=== PATIENT | female | born 1975 | race African-American/Black ===

== ENCOUNTER 2018-08-22 15:27 | Emergency (ER) | payer SELFPAY ==
[2018-08-22] MEDS ORDERED: KETOROLAC 30 MG/ML INJ ONE (16:15)
--- NOTE | 2018-08-22 17:00 | EDPHYS ---
Physician Documentation [facility] Name: Kerri Jacobson Age: 43 yrs Sex: Female : 1975 Arrival Date: 08/22/2018 Time: 15:28 Bed 16 Private MD: ED Physician Suleiman Doe HPI: 08/22 15:56 This 43 yrs old Black Female presents to ER via Ambulatory with complaints of Knee Pain.jr8 15:56 The patient presents with pain, that is acute. The complaints affect the right knee. jr8 Context: resulted from an unknown cause, the patient can partially bear weight, the patient is able to ambulate, with mild difficulty, Problem is a result from a previous injury: No. Onset: The symptoms/episode began/occurred acutely, yesterday, and became worse today. Modifying factors: The symptoms are alleviated by elevating leg, OTC meds, the symptoms are aggravated by movement, weight bearing. Associated signs and symptoms: Pertinent negatives calf tenderness, numbness, swelling, tingling, warmth. Treatment prior to arrival includes: over the counter medications, Tylenol. Severity of symptoms: At their worst the symptoms were moderate, in the emergency department the symptoms are unchanged. The patient has not experienced similar symptoms in the past. The patient has not recently seen a physician. right knee pain since yesterday, denies injury. Has been taking tylenol arthritis for pain but pain worsened today. 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 tw2 Historical: - Allergies: 15:35 No Known Allergies; hj - Home Meds: 17:42 losartan Oral [Active]; glipizide 5 mg Oral tab 1 tab once daily [Active]; Metformin tw2 Oral [Active]; - PMHx: 15:35 Diabetes - NIDDM; Hypertension; hj - PSHx: 15:35 uterine ablasion; hj - Immunization history:: Adult Immunizations up to date. - Social history:: Smoking status: Patient/guardian denies using tobacco. - Ebola Screening: : Patient denies travel to an Ebola-affected area in the 21 days before illness onset. ROS: 15:56 Constitutional: Negative for fever, chills, and weight loss, Eyes: Negative for injury, jr8 pain, redness, and discharge, ENT: Negative for injury, pain, and discharge, Neck: Negative for injury, pain, and swelling, Cardiovascular: Negative for chest pain, palpitations, and edema, Respiratory: Negative for shortness of breath, cough, wheezing, and pleuritic chest pain, Abdomen/GI: Negative for abdominal pain, nausea, vomiting, diarrhea, and constipation, Back: Negative for injury and pain, Skin: Negative for injury, rash, and discoloration, Neuro: Negative for headache, weakness, numbness, tingling, and seizure. 15:56 MS/extremity: Positive for pain, tenderness, Negative for contusion, deformity, paresthesias, swelling, tingling, warmth. Exam: 15:56 Constitutional: This is a well developed, well nourished patient who is awake, alert, jr8 and in no acute distress. Head/Face: Normocephalic, atraumatic. Eyes: Pupils equal round and reactive to light, extra-ocular motions intact. Lids and lashes normal. Conjunctiva and sclera are non-icteric and not injected. Cornea within normal limits. Periorbital areas with no swelling, redness, or edema. Neck: Trachea midline, no thyromegaly or masses palpated, and no cervical lymphadenopathy. Supple, full range of motion without nuchal rigidity, or vertebral point tenderness. No Meningismus. Cardiovascular: Regular rate and rhythm with a normal S1 and S2. No gallops, murmurs, or rubs. Normal PMI, no JVD. No pulse deficits. Respiratory: Lungs have equal breath sounds bilaterally, clear to auscultation and percussion. No rales, rhonchi or wheezes noted. No increased work of breathing, no retractions or nasal flaring. Abdomen/GI: Soft, non-tender, with normal bowel sounds. No distension or tympany. No guarding or rebound. No evidence of tenderness throughout. Back: No spinal tenderness. No costovertebral tenderness. Full range of motion. Skin: Warm, dry with normal turgor. Normal color with no rashes, no lesions, and no evidence of cellulitis. Neuro: Awake and alert, GCS 15, oriented to person, place, time, and situation. Cranial nerves II-XII grossly intact. Motor strength 5/5 in all extremities. Sensory grossly intact. Cerebellar exam normal. Normal gait. 15:56 Musculoskeletal/extremity: Extremities: grossly normal except: noted in the right knee: pain, tenderness, There is no evidence of deformity, erythema, swelling, ROM: limited active range of motion due to pain, in the right knee, Circulation is intact in all extremities. Pulses: noted to be 2+ in the right dorsalis pedis artery and left dorsalis pedis artery, Sensation intact. Vital Signs: 15:36 BP 124 / 76; Pulse 95; Resp 18; Temp 97.5(TE); Pulse Ox 100% on R/A; Weight 145.15 kg; hj Height 5 ft. 5 in. (165.10 cm); Pain 8/10; 15:36 Body Mass Index 53.25 (145.15 kg, 165.10 cm) hj MDM: 15:41 Patient medically screened. jr8 16:58 Data reviewed: vital signs, nurses notes, radiologic studies, plain films, and as a jr8 result, I will discharge patient. Data interpreted: Pulse oximetry: on room air is 100 %. Interpretation: normal. Counseling: I had a detailed discussion with the patient and/or guardian regarding: the historical points, exam findings, and any diagnostic results supporting the discharge/admit diagnosis, radiology results, the need for outpatient follow up, a orthopedic surgeon, to return to the emergency department if symptoms worsen or persist or if there are any questions or concerns that arise at home. 08/22 15:56 Order name: Knee Right 3 View XRAY; Complete Time: 17:19 jr8 08/22 17:41 Order name: Roverto Wrap; Complete Time: 17:40 tw2 Administered Medications: 16:02 Drug: TORadol - Ketorolac 15 mg Route: IM; Site: right vastus lateralis; aj 17:40 Follow up: Response: No adverse reaction; Pain is decreased tw2 Disposition: 18:03 Co-signature as Attending Physician, Suleiman Doe MD. rn Disposition: 08/22/18 16:59 Discharged to Home. Impression: Osteoarthritis of knee. - Condition is Stable. - Discharge Instructions: Arthritis. - Prescriptions for Mobic 15 mg Oral tablet - take 1 tablet by ORAL route once daily As needed; 20 tablet. - Work release form, Medication Reconciliation Form, Thank You Letter, Antibiotic Education, Prescription Opioid Use form. - Follow up: Bruce Onofre MD; When: 7 - 10 days; Reason: If symptoms return, Recheck today's complaints, Continuance of care, Re-evaluation by your physician. - Problem is new. - Symptoms have improved. Signatures: Dispatcher [employer] EDJoanna Arboleda, RN RN Suleiman Wallace MD MD rn Roszak, Josh, PA PA jr8 Ovi Millan RN RN Chelsey Chavez RN RN tw2 Corrections: (The following items were deleted from the chart) 17:43 16:59 08/22/2018 16:59 Discharged to Home. Impression: Osteoarthritis of knee. tw2 Condition is Stable. Forms are Medication Reconciliation Form, Thank You Letter, Antibiotic Education, Prescription Opioid Use. Follow up: Dr. Bruce Onofre; When: 7 - 10 days; Reason: If symptoms return, Recheck today's complaints, Continuance of care, Re-evaluation by your physician. Problem is new. Symptoms have improved. jr8
--- NOTE | 2018-08-22 17:00 | ER ---
Nurse's Notes [facility] Name: Kerri Jacobson Age: 43 yrs Sex: Female : 1975 Arrival Date: 08/22/2018 Time: 15:28 Bed 16 Private MD: Diagnosis: Osteoarthritis of knee Presentation: 08/22 15:34 Presenting complaint: Patient states: i started having this R knee pain yesterday, hj denies trauma to the area; reports R leg swealling;. Transition of care: patient was not received from another setting of care. Onset of symptoms was August 22, 2018. Risk Assessment: Do you want to hurt yourself or someone else? Patient reports no desire to harm self or others. Initial Sepsis Screen: Does the patient meet any 2 criteria? No. Patient's initial sepsis screen is negative. Does the patient have a suspected source of infection? No. Patient's initial sepsis screen is negative. Care prior to arrival: None. 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 tw2 Historical: - Allergies: 15:35 No Known Allergies; hj - Home Meds: 17:42 losartan Oral [Active]; glipizide 5 mg Oral tab 1 tab once daily [Active]; Metformin tw2 Oral [Active]; - PMHx: 15:35 Diabetes - NIDDM; Hypertension; hj - PSHx: 15:35 uterine ablasion; hj - Immunization history:: Adult Immunizations up to date. - Social history:: Smoking status: Patient/guardian denies using tobacco. - Ebola Screening: : Patient denies travel to an Ebola-affected area in the 21 days before illness onset. Screenin:02 Abuse screen: Denies threats or abuse. Denies injuries from another. Nutritional aj screening: No deficits noted. Tuberculosis screening: No symptoms or risk factors identified. Fall Risk None identified. Assessment: 16:02 General: Appears in no apparent distress. comfortable, Behavior is calm, cooperative, aj appropriate for age. Pain: Complains of pain in right leg and right knee. Neuro: Level of Consciousness is awake, alert, obeys commands, Oriented to person, place, time, situation, Appropriate for age. Respiratory: Airway is patent Respiratory effort is even, unlabored, Respiratory pattern is regular, symmetrical. Derm: Skin is intact, is healthy with good turgor, Skin is pink, warm \T\ dry. normal. Musculoskeletal: Reports pain in right knee. 17:42 Reassessment: Patient appears in no apparent distress at this time. Patient is alert, tw2 oriented x 3, equal unlabored respirations, skin warm/dry/pink. Patient states feeling better. Patient states symptoms have improved. Vital Signs: 15:36 BP 124 / 76; Pulse 95; Resp 18; Temp 97.5(TE); Pulse Ox 100% on R/A; Weight 145.15 kg; hj Height 5 ft. 5 in. (165.10 cm); Pain 8/10; 15:36 Body Mass Index 53.25 (145.15 kg, 165.10 cm) ED Course: 15:28 Patient arrived in ED. as 15:35 Triage completed. hj 15:35 Arm band placed on right wrist. hj 15:41 Mukesh Hendrickson PA is PHCP. jr8 15:41 Suleiman Doe MD is Attending Physician. jr8 15:43 Joanna Charles, BETTE is Primary Nurse. aj 16:02 Patient has correct armband on for positive identification. aj 16:02 No provider procedures requiring assistance completed. Patient did not have IV access aj during this emergency room visit. 16:59 Knee Right 3 View XRAY In Process Unspecified. EDMS 16:59 Bruce Onofre MD is Referral Physician. jr8 17:41 Roverto wrap to right knee CMS intact. tw2 Administered Medications: 16:02 Drug: TORadol - Ketorolac 15 mg Route: IM; Site: right vastus lateralis; aj 17:40 Follow up: Response: No adverse reaction; Pain is decreased tw2 Outcome: 16:59 Discharge ordered by . jr8 17:41 Discharged to home ambulatory. tw2 17:41 Condition: stable 17:41 Discharge instructions given to patient, Instructed on discharge instructions, follow up and referral plans. medication usage, Demonstrated understanding of instructions, follow-up care, medications, Prescriptions given X 1. 17:43 Patient left the ED. tw2 Signatures: Dispatcher [employer] EDMD Joanna Charles RN RN aj Martinez, Amelia as Mukesh Hendrickson PA PA jr8 Monty, Ovi, RN RN hj Garcia, Chelsey, RN RN tw2 Corrections: (The following items were deleted from the chart) 15:37 15:36 Pulse 95bpm; Resp 18bpm; Pulse Ox 100% RA; Temp 97.5F Temporal; 145.15 kg; Height hj 5 ft. 5 in.; BMI: 53.2; Pain 8/10; hj 17:43 17:41 Rovreto wrap to right knee tw2 tw2
--- NOTE | 2018-08-22 17:11 | RAD REPORT ---
EXAM DESCRIPTION: RAD - Knee Right 3 View - 08/22/2018 4:58 pm CLINICAL HISTORY: PAIN COMPARISON: <Comparisons> FINDINGS: Mild arthritic changes are present. No fracture or dislocation seen. A small suprapatellar joint effusion evident.
== END 2018-08-22 17:43 | disposition home or self-care (01) ==
LOC: ER 15:27
DX: M17.11 Unilateral primary osteoarthritis, right knee (principal); E11.9 Type 2 diabetes mellitus without complications; I10 Essential (primary) hypertension; Z79.84 Long term (current) use of oral hypoglycemic drugs

== ENCOUNTER 2022-09-27 17:41 | Emergency (ER) | payer OTHER, SELFPAY ==
--- OUTSIDE RECORDS SUMMARY | 2022-09-27 17:46 | XMS REPORT | Continuity of Care Document ---
:1975 Author Organization [facility] t Address [address] [place] [address] Care Team Providers Name Role Phone Sherrie Connolly Primary Care Physician [phone] Problems This patient has no known problems. Allergies, Adverse Reactions, Alerts This patient has no known allergies or adverse reactions. Medications Ordered Filled Start Stop Current Ordering Indication Dosage Frequency Signature Comments Components Source Medication Medication Date Date Medication? Clinician (SIG) Name Name hydrochloro 2021-0 No 1mg thiazide 25 6-22 mg tablet 00:00: 00 lisinopril 2021-0 No 1mg 20 6-22 mg-hydrochl 00:00: orothiazide 00 12.5 mg tablet Ozempic 2021-0 No mg(2 0.25 mg or 6-07 mg/1.5 0.5 mg (2 00:00: mL) mg/1.5 mL) 00 subcutaneou s pen injector fexofenadin 2021-0 No 1mg e 180 mg 6-07 tablet 00:00: 00 Diflucan 2-0 No 1mg 150 mg 5-12 tablet 00:00: 00 metronidazo 2-0 No 1mg le 500 mg 4-26 tablet 00:00: 00 diclofenac 2-0 No 1mg sodium 75 4-19 mg 00:00: tablet,suhail 00 yed release Ozempic 2021-0 No mg(2 0.25 mg or 4-16 mg/1.5 0.5 mg (2 00:00: mL) mg/1.5 mL) 00 subcutaneou s pen injector ProAir HFA 2021-0 No 1mcg/ac 90 4-16 tuation mcg/actuati 00:00: on aerosol 00 inhaler Advair 2022-0 No 1mcg/do Diskus 250 4-16 se mcg-50 00:00: mcg/dose 00 powder for inhalation hydrochloro 2-0 No 1mg thiazide 25 4-16 mg tablet 00:00: 00 glipizide 2-0 No 1mg 10 mg 4-16 tablet 00:00: 00 metformin 2-0 No 1mg 1,000 mg 4-16 tablet 00:00: 00 lisinopril 2-0 No 1mg 20 4-16 mg-hydrochl 00:00: orothiazide 00 12.5 mg tablet Dose 2-0 No Unknown 4-16 00:00: 00 Dose 2022-0 No Unknown 4-16 00:00: 00 Dose 2022-0 No Unknown 4-16 00:00: 00 Dose 2-0 No Unknown 4-16 00:00: 00 Dose 2022-0 No Unknown 4-16 00:00: 00 Dose 2022-0 No Unknown 4-16 00:00: 00 Dose 2022-0 No Unknown 4-16 00:00: 00 Dose 2022-0 No Unknown 4-16 00:00: 00 Dose 2022-0 No Unknown 4-16 00:00: 00 Dose 2022-0 No Unknown 4-16 00:00: 00 Dose 2022-0 No Unknown 4-16 00:00: 00 Dose 2022-0 No Unknown 4-16 00:00: 00 Dose 2022-0 No Unknown 4-16 00:00: 00 Dose 2022-0 No Unknown 4-16 00:00: 00 Dose 2022-0 No Unknown 4-16 00:00: 00 Dose 2022-0 No Unknown 4-16 00:00: 00 Dose 2022-0 No Unknown 4-16 00:00: 00 Dose 2022-0 No Unknown 4-16 00:00: 00 Dose 2022-0 No Unknown 4-16 00:00: 00 Dose 2022-0 No Unknown 4-16 00:00: 00 Dose 2022-0 No Unknown 4-16 00:00: 00 Dose 2022-0 No Unknown 4-16 00:00: 00 Dose 2022-0 No Unknown 4-16 00:00: 00 Dose 2022-0 No Unknown 4-16 00:00: 00 Dose 2022-0 No Unknown 4-16 00:00: 00 Dose 2022-0 No Unknown 4-16 00:00: 00 Dose 2022-0 No Unknown 4-16 00:00: 00 Dose 2022-0 No Unknown 4-16 00:00: 00 Dose 2022-0 No Unknown 4-16 00:00: 00 Dose 2022-0 No Unknown 4-16 00:00: 00 Dose 2022-0 No Unknown 4-16 00:00: 00 Dose 2022-0 No Unknown 4-16 00:00: 00 Dose 2022-0 No Unknown 4-16 00:00: 00 Dose 2022-0 No Unknown 4-16 00:00: 00 Dose 2022-0 No Unknown 4-16 00:00: 00 Dose 2022-0 No Unknown 4-16 00:00: 00 Dose 2022-0 No Unknown 4-16 00:00: 00 Dose 2022-0 No Unknown 4-16 00:00: 00 Dose 2022-0 No Unknown 4-16 00:00: 00 Dose 2022-0 No Unknown 4-16 00:00: 00 Dose 2022-0 No Unknown 4-16 00:00: 00 Dose 2022-0 No Unknown 4-16 00:00: 00 Dose 2022-0 No Unknown 4-16 00:00: 00 Dose 2022-0 No Unknown 4-16 00:00: 00 Dose 2022-0 No Unknown 4-16 00:00: 00 Dose 2022-0 No Unknown 4-16 00:00: 00 Dose 2022-0 No Unknown 4-16 00:00: 00 Dose 2022-0 No Unknown 4-16 00:00: 00 Dose 2022-0 No Unknown 4-16 00:00: 00 Dose 2022-0 No Unknown 4-16 00:00: 00 Dose 2022-0 No Unknown 4-16 00:00: 00 Dose 2022-0 No Unknown 4-16 00:00: 00 Dose 2022-0 No Unknown 4-16 00:00: 00 Dose 2022-0 No Unknown 4-16 00:00: 00 Dose 2022-0 No Unknown 4-16 00:00: 00 Dose 2022-0 No Unknown 4-16 00:00: 00 Dose 2022-0 No Unknown 4-16 00:00: 00 Dose 2022-0 No Unknown 4-16 00:00: 00 Dose 2022-0 No Unknown 4-16 00:00: 00 Dose 2022-0 No Unknown 4-16 00:00: 00 Dose 2022-0 No Unknown 4-16 00:00: 00 Dose 2022-0 No Unknown 4-16 00:00: 00 Dose 2022-0 No Unknown 4-16 00:00: 00 Dose 2022-0 No Unknown 4-16 00:00: 00 Dose 2022-0 No Unknown 4-16 00:00: 00 Dose 2022-0 No Unknown 4-16 00:00: 00 Dose 2022-0 No Unknown 4-16 00:00: 00 Dose 2022-0 No Unknown 4-16 00:00: 00 Dose 2022-0 No Unknown 4-16 00:00: 00 Dose 2022-0 No Unknown 4-16 00:00: 00 Dose 2022-0 No Unknown 4-16 00:00: 00 Dose 2022-0 No Unknown 4-16 00:00: 00 Dose 2022-0 No Unknown 4-16 00:00: 00 Dose 2022-0 No Unknown 4-16 00:00: 00 Dose 2022-0 No Unknown 4-16 00:00: 00 Dose 2022-0 No Unknown 4-16 00:00: 00 Dose 2022-0 No Unknown 4-16 00:00: 00 Dose 2022-0 No Unknown 4-16 00:00: 00 Dose 2022-0 No Unknown 4-16 00:00: 00 Dose 2022-0 No Unknown 4-16 00:00: 00 Dose 2022-0 No Unknown 4-16 00:00: 00 Dose 2022-0 No Unknown 4-16 00:00: 00 Dose 2022-0 No Unknown 4-16 00:00: 00 Dose 2022-0 No Unknown 4-16 00:00: 00 Dose 2022-0 No Unknown 4-16 00:00: 00 Dose 2022-0 No Unknown 4-16 00:00: 00 Dose 2022-0 No Unknown 4-16 00:00: 00 Dose 2022-0 No Unknown 4-16 00:00: 00 Dose 2022-0 No Unknown 4-16 00:00: 00 Dose 2022-0 No Unknown 4-16 00:00: 00 Dose 2022-0 No Unknown 4-16 00:00: 00 Dose 2022-0 No Unknown 4-16 00:00: 00 Dose 2022-0 No Unknown 4-16 00:00: 00 Dose 2022-0 No Unknown 4-16 00:00: 00 Dose 2022-0 No Unknown 4-16 00:00: 00 Dose 2022-0 No Unknown 4-16 00:00: 00 Dose 2022-0 No Unknown 4-16 00:00: 00 Dose 2022-0 No Unknown 4-16 00:00: 00 Dose 2022-0 No Unknown 4-16 00:00: 00 Dose 2022-0 No Unknown 4-16 00:00: 00 Dose 2022-0 No Unknown 4-16 00:00: 00 Dose 2022-0 No Unknown 4-16 00:00: 00 Dose 2022-0 No Unknown 4-16 00:00: 00 Dose 2022-0 No Unknown 4-16 00:00: 00 Dose 2022-0 No Unknown 4-16 00:00: 00 Dose 2022-0 No Unknown 4-16 00:00: 00 Dose 2022-0 No Unknown 4-16 00:00: 00 Dose 2022-0 No Unknown 4-16 00:00: 00 Dose 2022-0 No Unknown 4-16 00:00: 00 Dose 2022-0 No Unknown 4-16 00:00: 00 Dose 2022-0 No Unknown 4-16 00:00: 00 Dose 2022-0 No Unknown 4-16 00:00: 00 Dose 2022-0 No Unknown 4-16 00:00: 00 Dose 2022-0 No Unknown 4-16 00:00: 00 Dose 2022-0 No Unknown 4-16 00:00: 00 Dose 2022-0 No Unknown 4-16 00:00: 00 Dose 2022-0 No Unknown 4-16 00:00: 00 Dose 2022-0 No Unknown 4-16 00:00: 00 Dose 2022-0 No Unknown 4-16 00:00: 00 Dose 2022-0 No Unknown 4-16 00:00: 00 Dose 2022-0 No Unknown 4-16 00:00: 00 Dose 2022-0 No Unknown 4-16 00:00: 00 Dose 2022-0 No Unknown 4-16 00:00: 00 Dose 2022-0 No Unknown 4-16 00:00: 00 Dose 2022-0 No Unknown 4-16 00:00: 00 Dose 2022-0 No Unknown 4-16 00:00: 00 Dose 2022-0 No Unknown 4-16 00:00: 00 Dose 2022-0 No Unknown 4-16 00:00: 00 Dose 2022-0 No Unknown 4-16 00:00: 00 Dose 2022-0 No Unknown 4-16 00:00: 00 Dose 2022-0 No Unknown 4-16 00:00: 00 Dose 2022-0 No Unknown 4-16 00:00: 00 Dose 2022-0 No Unknown 4-15 00:00: 00 Dose 2022-0 No Unknown 4-15 00:00: 00 Dose 2022-0 No Unknown 4-15 00:00: 00 Dose 2022-0 No Unknown 4-15 00:00: 00 Dose 2022-0 No Unknown 4-15 00:00: 00 Dose 2022-0 No Unknown 4-15 00:00: 00 Dose 2022-0 No Unknown 4-15 00:00: 00 Dose 2022-0 No Unknown 4-15 00:00: 00 Dose 2022-0 No Unknown 4-15 00:00: 00 Dose 2022-0 No Unknown 4-15 00:00: 00 Dose 2022-0 No Unknown 4-15 00:00: 00 Dose 2022-0 No Unknown 4-15 00:00: 00 Dose 2022-0 No Unknown 4-15 00:00: 00 Dose 2022-0 No Unknown 4-15 00:00: 00 Dose 2022-0 No Unknown 4-15 00:00: 00 Dose 2022-0 No Unknown 4-15 00:00: 00 Dose 2022-0 No Unknown 4-15 00:00: 00 Dose 2022-0 No Unknown 4-15 00:00: 00 Dose 2022-0 No Unknown 4-15 00:00: 00 Dose 2022-0 No Unknown 4-15 00:00: 00 Dose 2022-0 No Unknown 4-15 00:00: 00 Dose 2022-0 No Unknown 4-15 00:00: 00 Dose 2022-0 No Unknown 4-15 00:00: 00 Dose 2022-0 No Unknown 4-15 00:00: 00 Dose 2022-0 No Unknown 4-15 00:00: 00 Dose 2022-0 No Unknown 4-15 00:00: 00 Dose 2022-0 No Unknown 4-15 00:00: 00 Dose 2022-0 No Unknown 4-15 00:00: 00 Dose 2022-0 No Unknown 4-15 00:00: 00 Dose 2022-0 No Unknown 4-15 00:00: 00 Dose 2022-0 No Unknown 4-15 00:00: 00 Dose 2022-0 No Unknown 4-15 00:00: 00 Dose 2022-0 No Unknown 4-15 00:00: 00 Dose 2022-0 No Unknown 4-15 00:00: 00 Dose 2022-0 No Unknown 4-15 00:00: 00 Dose 2022-0 No Unknown 4-15 00:00: 00 Dose 2022-0 No Unknown 4-15 00:00: 00 Dose 2022-0 No Unknown 4-15 00:00: 00 Dose 2022-0 No Unknown 4-15 00:00: 00 Dose 2022-0 No Unknown 4-15 00:00: 00 Dose 2022-0 No Unknown 4-15 00:00: 00 Dose 2022-0 No Unknown 4-15 00:00: 00 Dose 2022-0 No Unknown 4-15 00:00: 00 Dose 2022-0 No Unknown 4-15 00:00: 00 Dose 2022-0 No Unknown 4-11 00:00: 00 Dose 2022-0 No Unknown 4-11 00:00: 00 Dose 2022-0 No Unknown 4-11 00:00: 00 Dose 2022-0 No Unknown 4-11 00:00: 00 Dose 2022-0 No Unknown 4-11 00:00: 00 Dose 2022-0 No Unknown 4-11 00:00: 00 Dose 2022-0 No Unknown 4-11 00:00: 00 Dose 2022-0 No Unknown 4-11 00:00: 00 Dose 2022-0 No Unknown 4-11 00:00: 00 Dose 2022-0 No Unknown 4-11 00:00: 00 Dose 2022-0 No Unknown 4-11 00:00: 00 Dose 2022-0 No Unknown 4-11 00:00: 00 Dose 2022-0 No Unknown 4-11 00:00: 00 Dose 2022-0 No Unknown 4-11 00:00: 00 Dose 2022-0 No Unknown 4-11 00:00: 00 Dose 2022-0 No Unknown 4-11 00:00: 00 Dose 2022-0 No Unknown 4-11 00:00: 00 Dose 2022-0 No Unknown 4-11 00:00: 00 Dose 2022-0 No Unknown 4-11 00:00: 00 Dose 2022-0 No Unknown 4-11 00:00: 00 Dose 2022-0 No Unknown 4-11 00:00: 00 Dose 2022-0 No Unknown 4-11 00:00: 00 Dose 2022-0 No Unknown 4-11 00:00: 00 Dose 2022-0 No Unknown 4-11 00:00: 00 Dose 2022-0 No Unknown 4-11 00:00: 00 Dose 2022-0 No Unknown 4-11 00:00: 00 Dose 2022-0 No Unknown 4-11 00:00: 00 Dose 2022-0 No Unknown 4-11 00:00: 00 Dose 2022-0 No Unknown 4-11 00:00: 00 Dose 2022-0 No Unknown 4-11 00:00: 00 Dose 2022-0 No Unknown 4-11 00:00: 00 Dose 2022-0 No Unknown 4-11 00:00: 00 Dose 2022-0 No Unknown 4-11 00:00: 00 Dose 2022-0 No Unknown 4-11 00:00: 00 Dose 2022-0 No Unknown 4-11 00:00: 00 Dose 2022-0 No Unknown 4-11 00:00: 00 Dose 2022-0 No Unknown 4-11 00:00: 00 Dose 2022-0 No Unknown 4-11 00:00: 00 Dose 2022-0 No Unknown 4-11 00:00: 00 Dose 2022-0 No Unknown 4-11 00:00: 00 Dose 2022-0 No Unknown 4-11 00:00: 00 Dose 2022-0 No Unknown 4-11 00:00: 00 Dose 2022-0 No Unknown 4-11 00:00: 00 Dose 2022-0 No Unknown 4-11 00:00: 00 Dose 2022-0 No Unknown 4-11 00:00: 00 Dose 2022-0 No Unknown 4-11 00:00: 00 Dose 2022-0 No Unknown 4-11 00:00: 00 Dose 2022-0 No Unknown 4-11 00:00: 00 Dose 2022-0 No Unknown 4-11 00:00: 00 Dose 2022-0 No Unknown 4-11 00:00: 00 Dose 2022-0 No Unknown 4-11 00:00: 00 Dose 2022-0 No Unknown 4-11 00:00: 00 Dose 2022-0 No Unknown 4-11 00:00: 00 Dose 2022-0 No Unknown 4-11 00:00: 00 Dose 2022-0 No Unknown 4-11 00:00: 00 Dose 2022-0 No Unknown 4-11 00:00: 00 Dose 2022-0 No Unknown 4-11 00:00: 00 Dose 2022-0 No Unknown 4-11 00:00: 00 Dose 2022-0 No Unknown 4-11 00:00: 00 Dose 2022-0 No Unknown 4-11 00:00: 00 Dose 2022-0 No Unknown 4-11 00:00: 00 Dose 2022-0 No Unknown 4-11 00:00: 00 Dose 2022-0 No Unknown 4-11 00:00: 00 Dose 2022-0 No Unknown 4-11 00:00: 00 Dose 2022-0 No Unknown 4-11 00:00: 00 Dose 2022-0 No Unknown 4-11 00:00: 00 Dose 2022-0 No Unknown 4-08 00:00: 00 Dose 2022-0 No Unknown 4-08 00:00: 00 Dose 2022-0 No Unknown 4-08 00:00: 00 Dose 2022-0 No Unknown 4-08 00:00: 00 Dose 2022-0 No Unknown 4-08 00:00: 00 Dose 2022-0 No Unknown 4-08 00:00: 00 Dose 2022-0 No Unknown 4-08 00:00: 00 Dose 2022-0 No Unknown 4-08 00:00: 00 Dose 2022-0 No Unknown 4-08 00:00: 00 Dose 2022-0 No Unknown 4-08 00:00: 00 Dose 2022-0 No Unknown 4-08 00:00: 00 Dose 2022-0 No Unknown 4-08 00:00: 00 Dose 2022-0 No Unknown 4-08 00:00: 00 Dose 2022-0 No Unknown 4-08 00:00: 00 Dose 2022-0 No Unknown 4-08 00:00: 00 Dose 2022-0 No Unknown 4-08 00:00: 00 Dose 2022-0 No Unknown 4-08 00:00: 00 Dose 2022-0 No Unknown 4-08 00:00: 00 Dose 2022-0 No Unknown 4-08 00:00: 00 Dose 2022-0 No Unknown 4-08 00:00: 00 Dose 2022-0 No Unknown 4-08 00:00: 00 Dose 2022-0 No Unknown 4-08 00:00: 00 Dose 2022-0 No Unknown 4-08 00:00: 00 Dose 2022-0 No Unknown 4-08 00:00: 00 Dose 2022-0 No Unknown 4-08 00:00: 00 Dose 2022-0 No Unknown 4-08 00:00: 00 Dose 2022-0 No Unknown 4-08 00:00: 00 Dose 2022-0 No Unknown 4-08 00:00: 00 Dose 2022-0 No Unknown 4-08 00:00: 00 Dose 2022-0 No Unknown 4-08 00:00: 00 Dose 2022-0 No Unknown 4-08 00:00: 00 Dose 2022-0 No Unknown 4-08 00:00: 00 Dose 2022-0 No Unknown 4-08 00:00: 00 glipizide 2020-1 No 1mg 10 mg 1-02 tablet 00:00: 00 Dose 2020-1 No Unknown 0-01 00:00: 00 Advair 2020-02 No 1mcg/do Diskus 250 0-01 se mcg-50 00:00: mcg/dose 00 powder for inhalation diclofenac 2020-02 No 1mg sodium 75 0-01 mg 00:00: tablet,suhail 00 yed release Ozempic No mg(2 0.25 mg or 9-28 mg/1.5 0.5 mg (2 00:00: mL) mg/1.5 mL) 00 subcutaneou s pen injector Dose 0 No Unknown 9-28 00:00: 00 glipizide 2020-0 No 1mg 10 mg 9-28 tablet 00:00: 00 metformin 2020-0 No 1mg 1,000 mg 9-28 tablet 00:00: 00 lisinopril 0 No 1mg 20 9-28 mg-hydrochl 00:00: orothiazide 00 12.5 mg tablet hydroxyzine 2021-0 No 1mg HCl 50 mg 9-28 tablet 00:00: 00 gabapentin 2020-0 No 1mg 100 mg 9-28 capsule 00:00: 00 Dose 2020-0 No Unknown 9-23 00:00: 00 lactulose 2020-0 No 30(15 10 gram/15 7-24 mL) mL (15 mL) 00:00: oral 00 solution Wellbutrin 2020-0 No 1mg SR 150 mg 7-22 tablet, 12 00:00: hr 00 sustained-r elease diclofenac 2020-0 No 1mg sodium 75 7-22 mg 00:00: tablet,suhail 00 yed release glipizide 2020-0 No 1mg 10 mg 7-22 tablet 00:00: 00 Victoza 2020-0 No (18 3-Seth 0.6 6-10 mg/3 mg/0.1 mL 00:00: mL) (18 mg/3 00 mL) subcutaneou s pen injector Ozempic 2020-0 No mg(2 0.25 mg or 6-08 mg/1.5 0.5 mg (2 00:00: mL) mg/1.5 mL) 00 subcutaneou s pen injector ProAir HFA 2020-0 No 1mcg/ac 90 6-08 tuation mcg/actuati 00:00: on aerosol 00 inhaler Advair 2020-0 No 1mcg/do Diskus 250 6-08 se mcg-50 00:00: mcg/dose 00 powder for inhalation Wellbutrin 2020-0 No 1mg SR 150 mg 6-08 tablet, 12 00:00: hr 00 sustained-r elease diclofenac 2020-0 No 1mg sodium 75 6-08 mg 00:00: tablet,suhail 00 yed release glipizide 2020-0 No 1mg 10 mg 6-08 tablet 00:00: 00 atorvastati 2020-0 No 1mg n 20 mg 6-08 tablet 00:00: 00 albuterol 2020-0 No 2mcg/ac sulfate HFA 3-18 tuation 90 00:00: mcg/actuati 00 on aerosol inhaler Advair 2020-0 No 1mcg/do Diskus 250 3-18 se mcg-50 00:00: mcg/dose 00 powder for inhalation glipizide 2020-0 No 1mg 10 mg 3-18 tablet 00:00: 00 diclofenac 1-0 No 1mg sodium 75 3-18 mg 00:00: tablet,suhail 00 yed release Wellbutrin 2020-0 No 1mg SR 150 mg 3-18 tablet, 12 00:00: hr 00 sustained-r elease fluconazole 1-0 No mg 150 mg 2-08 tablet 00:00: 00 metronidazo 2020-0 No 1mg le 500 mg 2-08 tablet 00:00: 00 glipizide 2020-0 No 1mg 10 mg 2-08 tablet 00:00: 00 albuterol 2020-0 No 2mcg/ac sulfate HFA 1-19 tuation 90 00:00: mcg/actuati 00 on aerosol inhaler Advair 2020-0 No 1mcg/do Diskus 250 1-19 se mcg-50 00:00: mcg/dose 00 powder for inhalation glipizide 5 2020-0 No 1mg mg tablet 1-19 00:00: 00 metformin 2020-0 No 1mg 1,000 mg 1-19 tablet 00:00: 00 lisinopril 2020-0 No 1mg 20 1-19 mg-hydrochl 00:00: orothiazide 00 12.5 mg tablet metformin 2019-1 No 1mg 1,000 mg 0-27 tablet 00:00: 00 glipizide 5 2019-1 No 1mg mg tablet 0-27 00:00: 00 lisinopril 2019-1 No 1mg 20 0-27 mg-hydrochl 00:00: orothiazide 00 12.5 mg tablet fluconazole 2019-1 No mg 150 mg 0-27 tablet 00:00: 00 albuterol 2019-1 No 2mcg/ac sulfate HFA 0- tuation 90 00:00: mcg/actuati 00 on aerosol inhaler diclofenac 2019-0 No 1% 1 % topical 7-29 gel 00:00: 00 furosemide 2020-0 No 1mg 20 mg 7-29 tablet 00:00: 00 ibuprofen 2020-0 No 1mg 800 mg 7-29 tablet 00:00: 00 albuterol 2020-0 No 2mcg/ac sulfate HFA 7- tuation 90 00:00: mcg/actuati 00 on aerosol inhaler Advair 2019-0 No 1mcg/do Diskus 250 7-22 se mcg-50 00:00: mcg/dose 00 powder for inhalation Diflucan 2020-0 No 1mg 150 mg 4-13 tablet 00:00: 00 glipizide 5 2020-0 No 1mg mg tablet 4-02 00:00: 00 metformin 2020-0 No 1mg 1,000 mg 4-02 tablet 00:00: 00 lisinopril 2020-0 No 1mg 20 4-02 mg-hydrochl 00:00: orothiazide 00 12.5 mg tablet omeprazole 2020-0 No 1mg 40 mg 4-02 capsule,del 00:00: ayed 00 release diclofenac 2020-0 No 1mg sodium 75 3-06 mg 00:00: tablet,suhail 00 yed release albuterol 2020-0 No 2mcg/ac sulfate HFA 2-06 tuation 90 00:00: mcg/actuati 00 on aerosol inhaler Advair 2020-0 No 1mcg/do Diskus 250 2-06 se mcg-50 00:00: mcg/dose 00 powder for inhalation lisinopril 2020-0 No 1mg 20 2-06 mg-hydrochl 00:00: orothiazide 00 12.5 mg tablet glipizide 5 2020-0 No 1mg mg tablet 1-03 00:00: 00 metformin 2020-0 No 1mg 1,000 mg 1-03 tablet 00:00: 00 diclofenac 2020-0 No 1mg sodium 75 1-03 mg 00:00: tablet,suhail 00 yed release clarithromy 2020-0 No 1mg nieves 500 mg 1-03 tablet 00:00: 00 amoxicillin 2020-0 No 2mg 500 mg 1-03 tablet 00:00: 00 lisinopril 2020-0 No 1mg 20 1-03 mg-hydrochl 00:00: orothiazide 00 12.5 mg tablet omeprazole 2020-0 No 1mg 40 mg 1-03 capsule,del 00:00: ayed 00 release lisinopril 2016- No 1mg 20 1-15 mg-hydrochl 00:00: orothiazide 00 12.5 mg tablet metformin 2017- No 1mg 1,000 mg 1-15 tablet 00:00: 00 glipizide 5 2016- No 1mg mg tablet 1-15 00:00: 00 lovastatin 2017- No 1mg 20 mg 1-07 tablet 00:00: 00 glipizide 5 2016- No 2mg mg tablet 1 00:00: 00 lovastatin 2016-0 No 1mg 20 mg 3-20 tablet 00:00: 00 glipizide 5 2016-0 No 1mg mg tablet 3-17 00:00: 00 metformin 2016-0 No 1mg 1,000 mg 3-17 tablet 00:00: 00 albuterol No 2mcg/ac sulfate HFA 2- tuation 90 00:00: mcg/actuati 00 on aerosol inhaler hydrochloro 2016-0 No 1mg thiazide 25 2-01 mg tablet 00:00: 00 metformin 2016-0 No 1mg 500 mg 2-01 tablet 00:00: 00 Vital Signs Vital Name Observation Time Observation Value Comments Source BP Systolic 2021-11-29 14:18:00 143 mm[Hg] BP Diastolic 2021-11-29 14:18:00 91 mm[Hg] Weight Measured 2021-11-29 14:18:00 320.00 pounds Height Measured 2021-11-29 14:18:00 66.73 inches Body Temperature 2021-11-29 14:18:00 98.70 degrees Heart Rate 2021-11-29 14:18:00 96.00 /min Respiratory Rate 2021-11-29 14:18:00 18.00 /min BP Systolic 2021-07-13 16:59:00 116 mm[Hg] BP Diastolic 2021-07-13 16:59:00 79 mm[Hg] Weight Measured 2021-07-13 16:59:00 325.40 pounds Height Measured 2021-07-13 16:59:00 66.73 inches Body Temperature 2021-07-13 16:59:00 97.70 degrees Heart Rate 2021-07-13 16:59:00 102.00 /min Respiratory Rate 2021-07-13 16:59:00 BP Systolic 2021-05-29 13:24:00 146 mm[Hg] BP Diastolic 2021-05-29 13:24:00 88 mm[Hg] Weight Measured 2021-05-29 13:24:00 236.00 pounds Height Measured 2021-05-29 13:24:00 66.73 inches Body Temperature 2021-05-29 13:24:00 98.40 degrees Heart Rate 2021-05-29 13:24:00 118.00 /min Respiratory Rate 2021-05-29 13:24:00 21.00 /min BP Systolic 2021-05-22 16:06:00 149 mm[Hg] BP Diastolic 2021-05-22 16:06:00 100 mm[Hg] Weight Measured 2021-05-22 16:06:00 329.80 pounds Height Measured 2021-05-22 16:06:00 66.73 inches Body Temperature 2021-05-22 16:06:00 97.90 degrees Heart Rate 2021-05-22 16:06:00 113.00 /min Respiratory Rate 2021-05-22 16:06:00 BP Systolic 2020-11-03 16:49:00 133 mm[Hg] BP Diastolic 2020-11-03 16:49:00 87 mm[Hg] Weight Measured 2020-11-03 16:49:00 342.00 pounds Height Measured 2020-11-03 16:49:00 66.73 inches Body Temperature 2020-11-03 16:49:00 97.40 degrees Heart Rate 2020-11-03 16:49:00 102.00 /min Respiratory Rate 2020-11-03 16:49:00 BP Systolic 2020-10-29 16:42:00 137 mm[Hg] BP Diastolic 2020-10-29 16:42:00 89 mm[Hg] Weight Measured 2020-10-29 16:42:00 339.00 pounds Height Measured 2020-10-29 16:42:00 66.73 inches Body Temperature 2020-10-29 16:42:00 98.30 degrees Heart Rate 2020-10-29 16:42:00 94.00 /min Respiratory Rate 2020-10-29 16:42:00 BP Systolic 2020-08-29 08:37:00 104 mm[Hg] BP Diastolic 2020-08-29 08:37:00 67 mm[Hg] Weight Measured 2020-08-29 08:37:00 332.00 pounds Height Measured 2020-08-29 08:37:00 66.73 inches Body Temperature 2020-08-29 08:37:00 98.20 degrees Heart Rate 2020-08-29 08:37:00 104.00 /min Respiratory Rate 2020-08-29 08:37:00 18.00 /min BP Systolic 2020-07-10 16:12:00 125 mm[Hg] BP Diastolic 2020-07-10 16:12:00 83 mm[Hg] Weight Measured 2020-07-10 16:12:00 332.40 pounds Height Measured 2020-07-10 16:12:00 66.73 inches Body Temperature 2020-07-10 16:12:00 98.40 degrees Heart Rate 2020-07-10 16:12:00 100.00 /min Respiratory Rate 2020-07-10 16:12:00 17.00 /min BP Systolic 2020-04-23 08:59:00 130 mm[Hg] BP Diastolic 2020-04-23 08:59:00 80 mm[Hg] Weight Measured 2020-04-23 08:59:00 335.40 pounds Height Measured 2020-04-23 08:59:00 65.00 inches Body Temperature 2020-04-23 08:59:00 97.90 degrees Heart Rate 2020-04-23 08:59:00 99.00 /min Respiratory Rate 2020-04-23 08:59:00 18.00 /min BP Systolic 2020-03-10 08:41:00 136 mm[Hg] BP Diastolic 2020-03-10 08:41:00 81 mm[Hg] Weight Measured 2020-03-10 08:41:00 331.60 pounds Height Measured 2020-03-10 08:41:00 65.00 inches Body Temperature 2020-03-10 08:41:00 98.10 degrees Heart Rate 2020-03-10 08:41:00 99.00 /min Respiratory Rate 2020-03-10 08:41:00 17.00 /min Procedures Procedure Date / Time Performed Performing Clinician [facility] e [id number] Ecg Routine Ecg W/least 12 2016-03-09 00:00:00 Lds W/i r Plan of Care Planned Activity Planned Date Details Comments Source Goal Plan of Care Note [code = 02129-5] Goal Plan of Care Note [code = 38869-7] Goal Plan of Care Note [code = 68205-5] Goal Plan of Care Note [code = 83634-0] Goal Plan of Care Note [code = 01195-2] Goal Plan of Care Note [code = 32740-7] Goal Plan of Care Note [code = 63406-9] Goal Plan of Care Note [code = 35066-5] Goal Plan of Care Note [code = 53104-4] Goal Plan of Care Note [code = 41668-0] Goal Plan of Care Note [code = 94670-3] Goal Plan of Care Note [code = 79238-1] Goal Plan of Care Note [code = 45699-8] Goal Plan of Care Note [code = 57944-9] Goal Plan of Care Note [code = 15923-0] Goal Plan of Care Note [code = 52490-1] Goal Plan of Care Note [code = 73357-1] Goal Plan of Care Note [code = 61240-5] Goal Plan of Care Note [code = 75821-2] Goal Plan of Care Note [code = 41398-9] Goal Plan of Care Note [code = 44214-5] Goal Plan of Care Note [code = 35083-6] Goal Plan of Care Note [code = 20079-8] Goal Plan of Care Note [code = 06814-0] Goal Plan of Care Note [code = 72802-0] Goal Plan of Care Note [code = 27446-8] Goal Plan of Care Note [code = 43150-4] Goal Plan of Care Note [code = 54875-3] Goal Plan of Care Note [code = 74229-0] Goal Plan of Care Note [code = 00500-0] Goal Plan of Care Note [code = 21432-5] Goal Plan of Care Note [code = 34626-4] Goal Plan of Care Note [code = 04207-2] Goal Plan of Care Note [code = 15343-1] Goal Plan of Care Note [code = 25924-3] Goal Plan of Care Note [code = 54880-2] Goal Plan of Care Note [code = 95958-6] Goal Plan of Care Note [code = 76153-6] Goal Plan of Care Note [code = 27644-9] Goal Plan of Care Note [code = 89376-0] Goal Plan of Care Note [code = 37879-2] Encounters Start End Encounter Admission Attending Care Care Encounter Source Date/Time Date/Time Type Type Clinicians Facility Department ID 2022-01-10 2022-01-10 Outpatient [facility] [id number] González 15:00:22 15:00:22 1205 F Scotty 2021-11-29 2021-11-29 Outpatient [facility] [id number] González 14:11:53 14:11:53 1024 F Scotty 2021-11-29 2021-11-29 Outpatient [id number] 00:00:00 00:00:00 Visit [id number] Results Test Description Test Time Test Comments Results Result Comments Source HEMOGLOBIN A1c 2021-11-30 09:13:04 Test Item Value Reference Range Interpretation Comme nts HEMOGLOBIN A1c (test code = 99624) 6.1 % 4.2-5.6 H LIPID [id number] 08:16:21 Test Item Value Reference Range Interpretation Comments CHOLESTEROL (test 228 MG/DL <200 H code = 2210) TRIGLYCERIDES (test 200 MG/DL <150 H code = 2232) HDL CHOLESTEROL (test 57 MG/DL >39 code = 2220) CALC LDL CHOL (test 137 MG/DL <100 H NOTE: C ALCULATED LDL code = 2237) IS BASED ON GABI-BREWER METHOD WHICHINCLUDES ADJUSTABLE TRIGLYCERIDE:VL DL CHOLESTEROL RAT IO.THIS FACTOR VARIES B Y MEASURED TRIGLY CERIDE AND NON-HDLCHOL ESTEROL CONCENTRATIONS WITH INCREASED CALCU LATED LDL SEENIN HIGH ER TRIGLYCERIDE OR LOWER NON-HDL SPECIME NS. FOR MOREINFORMATION , SEE CLIENT ANNOUNCE MENT AT [email or web address] [email or web address] LDL/HDL 2.40 RATIO <3.22 (test code = 2238) COMPREHENSIVE METABOLIC [id number] 08:16:21 Test Item Value Reference Range Interpretation Comments GLUCOSE (test code = 98 MG/DL 70-99 2216) BUN (test code = 17 MG/DL 6-20 2207) CREATININE (test 0.77 MG/DL 0.60-1.30 code = 2214) eGFR (2020 CKD-EPI) 97 >60 (test code = 39841) ML/MIN/1.73 CALC BUN/CREAT (test 22 RATIO 6-28 code = 2235) SODIUM (test code = 145 MEQ/L 300-776 1764) POTASSIUM (test code 4.2 MEQ/L 3.5-5.4 = 2227) CHLORIDE (test code 104 MEQ/L 95-107 = 221) CARBON DIOXIDE (test 28 MEQ/L 19-31 code = 2206) CALCIUM (test code = 10.0 MG/DL 8.5-10.5 2208) PROTEIN, TOTAL (test 7.5 G/DL 6.1-8.3 code = 222) ALBUMIN (test code = 4.0 G/DL 3.5-5.2 2200) CALC GLOBULIN (test 3.5 G/DL 1.9-3.7 code = 2240) CALC A/G RATIO (test 1.1 RATIO 1.0-2.6 code = 223) BILIRUBIN, TOTAL <0.2 MG/DL See_Comment [Automated message] (test code = 2206) The [employer] which generated this result transmitted ref erence range: <=1.2. T he reference range was not used to int erpret this result as normal/abnormal . ALKALINE PHOSPHATASE 129 U/L 40-116 H (test code = 2203) AST (test code = 34 U/L 9-40 2217) ALT (test code = 45 U/L 5-40 H UNLESS OTH ERWISE 2218) INDICATED, ALL TESTING PERFORM [facility], [facility]. [address] [place] [address] DILLON HERNANDEZ DIRECTOR: Magalys LOVE NUMBER [id number] [facility] ACCREDITATION N O. [id number] PAP TEST, THINPREP, [id number] 14:52:27 Test Item Value Reference Range Interpretation Comments SOURCE: (test code = Cervical/Endoc 8001) ervical SLIDES: (test code = 1 1141) LMP: (test code = ABLATION 8077) SPECIMEN ADEQUACY: (NOTE) Morelia hernandez for (test code = 49658) evaluati on. Endocervical cells/transform ation zone component not identified. INTERPRETATION: ASCUS/EPITH. A --------- (test code = 71621) ABNORMALITY; -------- SEE BELOW ------ ------- EPITHELIAL CELL ABNORMALITY Atypical squamo us cells of undete rmined significance (ASC-US)------- ------ ------ ------ SKEIN YARN DYER HELPER: DO Souza (test code = 8101) DON IRIZARRY(ASC ) PATHOLOGIST Porsche INTERPRETATION BY: Magalys Pgua (test code = 8122) LOCATION: (test code (NOTE) Specime ns processed = 54897) [facility], [address] [place] [address], Phone: , CLIA: [id number] interpreted at [facility], [address] [place] [address], , CLIA: [id number] CPT: (test code = (NOTE) 40258, 881 41 UNLESS 8140) OTHERWISE INDIC ATED, COMPUTER AIDED AND CYTOTECHNOLOGIS T SCREENING PERFO RMED. The Pap test is a screening test with an inherent, bu t low probability of error. Your patient sh ould be reminded to consult you immediately if she experiences any suspicious sign s or symptoms, regar dless of her Pap test result. An alte rnate report format containing imag es or consolidated pr ior Pap history is available as applicable. PAP TEST, THINPREP, [id number] 00:00:00 Test Item Value Reference Range Interpretation Comments SOURCE: (test code = 8001) Cervical/Endocervic al SLIDES: (test code = 8011) 1 LMP: (test code = 8021) ABLATION SPECIMEN ADEQUACY: (test (NOTE) code = 50403) INTERPRETATION: (test code ASCUS/EPITH. = 06703) ABNORMALITY; SEE BELOW SKEIN YARN DYER HELPER: (test DO Lake. code = 8101) DON IRIZARRY(ASCP) PATHOLOGIST INTERPRETATION Porsche Puga BY: (test code = 8122) M.DVinicio LOCATION: (test code = (NOTE) 13047) CPT: (test code = 8140) (NOTE) PAP TEST, THINPREP, [id number] 00:00:00 Test Item Value Reference Range Interpretation Comments SOURCE: (test code = 8001) Cervical/Endocervic al SLIDES: (test code = 8011) 1 LMP: (test code = 8021) ABLATION SPECIMEN ADEQUACY: (test (NOTE) code = 27210) INTERPRETATION: (test code ASCUS/EPITH. = 62767) ABNORMALITY; SEE BELOW SKEIN YARN DYER HELPER: (test DO Lake. code = 8101) DON IRIZARRY(ASCP) PATHOLOGIST INTERPRETATION Porsche Jacobsonwo, BY: (test code = 8122) M.DVinicio LOCATION: (test code = (NOTE) 44034) CPT: (test code = 8140) (NOTE) VAGINAL PATHOGENS DNA [id number] 14:58:48 Test Item Value Reference Range Interpretation Comments POPPY SPECIES (test code = 53866) NEGATIVE NEGATIVE G. VAGINALIS (test code = 93385) POSITIVE NEGATIVE A T. VAGINALIS (test code = 60253) NEGATIVE NEGATIVE CT/NG, TMA, [id number] 14:01:13 Test Item Value Reference Range Interpretation Comments GONORRHEA, TMA NEGATIVE NEGATIVE Assay method ology is (test code = nucleic acid am plification 76488) by transcriptio n mediated amplification ( TMA) utilizing the A ptima Combo 2 Assay. CHLAMYDIA, TMA NEGATIVE NEGATIVE Assay method ology is (test code = nucleic acid am plification 31752) by transcriptio n mediated amplification ( TMA) utilizing the A ptima Combo 2 Assay. HPV HIGH RISK WITH GENOTYPE, [id number] 08:49:29 Test Item Value Reference Range Interpretation Comments HPV HIGH RISK TEST NOT PERFORMED NEGATIVE QUANTI TY OF INTERP (test SPECIMEN INSUFF ICIENT code = 25418) FOR TESTING. C HARGES DELETED. UNLESS OTHERWISE INDIC ATED, ALL TESTING PER FORMED [facility], [place]. [address] [facility] [place] [address] DILLON CELIS DIRECTOR: Magalys LOVEIA NUMBER [id number] [facility] ACCREDITATION N O. [id number] HPV HIGH RISK WITH GENOTYPE, [id number] 00:00:00 Test Item Value Reference Range Interpretation Comments HPV HIGH RISK INTERP (test TEST NOT PERFORMED code = 57702) HPV HIGH RISK WITH GENOTYPE, [id number] 00:00:00 Test Item Value Reference Range Interpretation Comments HPV HIGH RISK INTERP (test TEST NOT PERFORMED code = 97238) GC AND CHLAMYDIA AMPLIFIED, [id number] 00:00:00 Test Item Value Reference Range Interpretation Comments GONORRHEA, TMA (test code = 56989) NEGATIVE CHLAMYDIA, TMA (test code = 33389) NEGATIVE VAGINAL PATHOGENS DNA [id number] 00:00:00 Test Item Value Reference Range Interpretation Comments POPPY SPECIES (test code = 06443) NEGATIVE G. VAGINALIS (test code = 28191) POSITIVE T. VAGINALIS (test code = 09510) NEGATIVE GC AND CHLAMYDIA AMPLIFIED, [id number] 00:00:00 Test Item Value Reference Range Interpretation Comments GONORRHEA, TMA (test code = 41702) NEGATIVE CHLAMYDIA, TMA (test code = 86631) NEGATIVE VAGINAL PATHOGENS DNA [id number] 00:00:00 Test Item Value Reference Range Interpretation Comments POPPY SPECIES (test code = 48069) NEGATIVE G. VAGINALIS (test code = 00723) POSITIVE T. VAGINALIS (test code = 05934) NEGATIVE HEPATITIS PANEL, [id number] 23:08:25 Test Item Value Reference Range Interpretation Comments HEPATITIS A IgM (test NON-REACTIVE NON-REACTIVE code = 79103) HEPATITIS B CORE IgM NON-REACTIVE NON-REACTIVE (test code = 4644) HEPATITIS B SURF AG NON-REACTIVE NON-REACTIVE (test code = 2739) HEPATITIS C ANTIBODY NON-REACTIVE NON-REACTIVE (test code = 4675) INTERPRETATION (NOTE) Hepatitis A HEPATITIS A: (test code sero logy shows no = 2292) evidence of acu te hepatitis A. INTERPRETATION (NOTE) Hepatitis B HEPATITIS B: (test code sero logy shows no = 84682) evidence of acu te hepatitis B and no indication of exposure to hepatitis B vir us in the previous mikayla eight months. INTERPRETATION (NOTE) Hepatitis C HEPATITIS C: (test code sero logy shows no = 52700) evidence of exposure to hepatitisC viru s at this time. I t can take up to 12 months after exposure tothe hepatitis C vir us for antibodies to become detectab le in the blood in certain patient s. HIV 1/2 4TH GEN, RFLX [id number] 23:08:25 Test Item Value Reference Range Interpretation Comments HIV 1/2 4TH GEN, RFLX CONF (test NON-REACTIVE NON-REACTIVE code = 3514) [id number] 22:27:26 Test Item Value Reference Range Interpretation Comments RPR RESULT (test code = NON-REACTIVE NON-REACTIVE 3501) RPR TITER (test code = 3500) NOT INDIC. TITER NOT INDIC. ACUTE HEPATITIS [id number] 00:00:00 Test Item Value Reference Range Interpretation Comments HEPATITIS A IgM (test code = NON-REACTIVE 97507) HEPATITIS B CORE IgM (test code NON-REACTIVE = 4644) HEPATITIS B SURF AG (test code = NON-REACTIVE 2739) HEPATITIS C ANTIBODY (test code NON-REACTIVE = 4675) INTERPRETATION HEPATITIS A: (NOTE) (test code = 2552) INTERPRETATION HEPATITIS B: (NOTE) (test code = 70938) INTERPRETATION HEPATITIS C: (NOTE) (test code = 11080) [id number] 00:00:00 Test Item Value Reference Range Interpretation Comments RPR RESULT (test code = NON-REACTIVE 3501) RPR TITER (test code = 3500) NOT INDIC. TITER [id number] 00:00:00 Test Item Value Reference Range Interpretation Comments RPR RESULT (test code = NON-REACTIVE 3501) RPR TITER (test code = 3500) NOT INDIC. TITER [id number] 00:00:00 Test Item Value Reference Range Interpretation Comments RPR RESULT (test code = NON-REACTIVE 3501) RPR TITER (test code = 3500) NOT INDIC. TITER HIV AB/AG COMBO RFLX [id number] 00:00:00 Test Item Value Reference Range Interpretation Comments HIV 1/2 4TH GEN, RFLX CONF (test NON-REACTIVE code = 3514) HIV AB/AG COMBO RFLX [id number] 00:00:00 Test Item Value Reference Range Interpretation Comments HIV 1/2 4TH GEN, RFLX CONF (test NON-REACTIVE code = 3514) ACUTE HEPATITIS [id number] 00:00:00 Test Item Value Reference Range Interpretation Comments HEPATITIS A IgM (test code = NON-REACTIVE 46374) HEPATITIS B CORE IgM (test code NON-REACTIVE = 4644) HEPATITIS B SURF AG (test code = NON-REACTIVE 1149) HEPATITIS C ANTIBODY (test code NON-REACTIVE = 4675) INTERPRETATION HEPATITIS A: (NOTE) (test code = 2552) INTERPRETATION HEPATITIS B: (NOTE) (test code = 09314) INTERPRETATION HEPATITIS C: (NOTE) (test code = 59308) HEMOGLOBIN [id number] 04:17:02 Test Item Value Reference Range Interpretation Comments HEMOGLOBIN A1c (test 10.2 % 4.2-5.6 H AMERIC AN DIABETES code = 82855) ASSOCIATION IDELINES FOR HGB A1C: PREDIABETES/INC REASED RISK . . . . . . . 5 .7-6.4% DIAGNOSIS OF DI ABETES . . . . . . . . . >=6 .5% WITH CONFIRMATION OR APPROPRIATE SYMPTOMS NOTE: ASSAY MAY BE AFFECTED BY HEMOGLOBINOPATH IES (SICKLE CELL ANEMIA, S- C DISEASE, OTHERS) OR RASHIDA FICIALLY LOWERED BY DECR EASED RED CELL SURVIVAL ( HEMOLYTIC ANEMIAS, BLOOD LOSS, ETC.). CONSIDER ALTERNATE TESTING OR LABO RATORY CONSULTATION. U NLESS OTHERWISE INDIC ATED, ALL TESTING PERFORM ED ATCLINICAL PATH [facility], [facility]. [address] [place] [address] LABORATORY DIRE CTOR: Mery LOVE. CLIA NUMBER [id number] CAP ACCREDITATION N O. [id number] HEMOGLOBIN [id number] 00:00:00 Test Item Value Reference Range Interpretation Comments HEMOGLOBIN A1c (test code = 06999) 10.2 % HEMOGLOBIN [id number] 00:00:00 Test Item Value Reference Range Interpretation Comments HEMOGLOBIN A1c (test code = 21957) 10.2 % HEMOGLOBIN [id number] 00:00:00 Test Item Value Reference Range Interpretation Comments HEMOGLOBIN A1c (test code = 03932) 10.2 % COMPREHENSIVE METABOLIC [id number] 03:16:02 Test Item Value Reference Range Interpretation Comments GLUCOSE (test code = 344 MG/DL 70-99 H 2216) BUN (test code = 15 MG/DL 6-20 2207) CREATININE (test 0.70 MG/DL 0.60-1.30 code = 2213) eGFR (2020 CKD-EPI) 109 >60 (test code = 44080) ML/MIN/1.73 CALC BUN/CREAT (test 21 RATIO 6-28 code = 223) SODIUM (test code = 136 MEQ/L 517-779 0343) POTASSIUM (test code 4.5 MEQ/L 3.5-5.4 = 2227) CHLORIDE (test code 95 MEQ/L 95-107 = 2214) CARBON DIOXIDE (test 26 MEQ/L 19-31 code = 2205) CALCIUM (test code = 10.3 MG/DL 8.5-10.5 2208) PROTEIN, TOTAL (test 8.0 G/DL 6.1-8.3 code = 2228) ALBUMIN (test code = 3.7 G/DL 3.5-5.2 2200) CALC GLOBULIN (test 4.3 G/DL 1.9-3.7 H code = 2239) CALC A/G RATIO (test 0.9 RATIO 1.0-2.6 L code = 2233) BILIRUBIN, TOTAL 0.4 MG/DL See_Comment [Automated message] (test code = 2206) The syste m which generated this result transmit samuel reference range : <=1.2. The refe rence range was not u sed to interpret th is result as normal/abnormal . ALKALINE PHOSPHATASE 130 U/L 40-116 H (test code = 2203) AST (test code = 29 U/L 9-40 2217) ALT (test code = 42 U/L 5-40 H 2218) LIPID [id number] 03:16:02 Test Item Value Reference Range Interpretation Comments CHOLESTEROL (test 242 MG/DL <200 H code = 2210) TRIGLYCERIDES (test 179 MG/DL <150 H code = 2232) HDL CHOLESTEROL (test 55 MG/DL >39 code = 222) CALC LDL CHOL (test 156 MG/DL <100 H NOTE: C ALCULATED LDL code = 2237) IS BASED ON GABI-BREWER METHOD WHICHINCLUDES ADJUSTABLE TRIGLYCERIDE:VL DL CHOLESTEROL RAT IO.THIS FACTOR VARIES B Y MEASURED TRIGLY CERIDE AND NON-HDLCHOL ESTEROL CONCENTRATIONS WITH INCREASED CALCU LATED LDL SEENIN HIGH ER TRIGLYCERIDE OR LOWER NON-HDL SPECIME NS. FOR MOREINFORMATION , SEE CLIENT ANNOUNCE MENT AT [email or web address] RISK RATIO LDL/HDL 2.84 RATIO <3.22 UNLESS O THERWISE (test code = 2238) INDICATED , ALL TESTING PERFORMED [facility], [facility]. [address] [place] [address] LABOR ATORY DIRECTOR: CHAPITO HERNANDEZ M.D. CLIA NUMBER [id number] CAP ACCREDITATION N O. [id number] LIPID [id number] 00:00:00 Test Item Value Reference Range Interpretation Comments CHOLESTEROL (test code = 2210) 242 MG/DL TRIGLYCERIDES (test code = 2232) 179 MG/DL HDL CHOLESTEROL (test code = 2220) 55 MG/DL CALC LDL CHOL (test code = 2237) 156 MG/DL RISK RATIO LDL/HDL (test code = 2.84 RATIO 2238) COMPREHENSIVE METABOLIC [id number] 00:00:00 Test Item Value Reference Range Interpretation Comments GLUCOSE (test code = 2217) 344 MG/DL BUN (test code = 2208) 15 MG/DL CREATININE (test code = 2214) 0.70 MG/DL eGFR (2020 CKD-EPI) (test 109 ML/MIN/1.73 code = 87848) CALC BUN/CREAT (test code = 21 RATIO 2235) SODIUM (test code = 2231) 136 MEQ/L POTASSIUM (test code = 2228) 4.5 MEQ/L CHLORIDE (test code = 2215) 95 MEQ/L CARBON DIOXIDE (test code = 26 MEQ/L 2205) CALCIUM (test code = 2209) 10.3 MG/DL PROTEIN, TOTAL (test code = 8.0 G/DL 2228) ALBUMIN (test code = 2201) 3.7 G/DL CALC GLOBULIN (test code = 4.3 G/DL 2239) CALC A/G RATIO (test code = 0.9 RATIO 2233) BILIRUBIN, TOTAL (test code = 0.4 MG/DL 2206) ALKALINE PHOSPHATASE (test 130 U/L code = 2204) AST (test code = 2218) 29 U/L ALT (test code = 2219) 42 U/L COMPREHENSIVE METABOLIC [id number] 00:00:00 Test Item Value Reference Range Interpretation Comments GLUCOSE (test code = 2217) 344 MG/DL BUN (test code = 2208) 15 MG/DL CREATININE (test code = 2214) 0.70 MG/DL eGFR (2020 CKD-EPI) (test 109 ML/MIN/1.73 code = 89804) CALC BUN/CREAT (test code = 21 RATIO 2235) SODIUM (test code = 2231) 136 MEQ/L POTASSIUM (test code = 2228) 4.5 MEQ/L CHLORIDE (test code = 2215) 95 MEQ/L CARBON DIOXIDE (test code = 26 MEQ/L 2205) CALCIUM (test code = 220) 10.3 MG/DL PROTEIN, TOTAL (test code = 8.0 G/DL 2228) ALBUMIN (test code = 220) 3.7 G/DL CALC GLOBULIN (test code = 4.3 G/DL 2239) CALC A/G RATIO (test code = 0.9 RATIO 2233) BILIRUBIN, TOTAL (test code = 0.4 MG/DL 2206) ALKALINE PHOSPHATASE (test 130 U/L code = 2204) AST (test code = 2218) 29 U/L ALT (test code = 2219) 42 U/L LIPID [id number] 00:00:00 Test Item Value Reference Range Interpretation Comments CHOLESTEROL (test code = 2210) 242 MG/DL TRIGLYCERIDES (test code = 2232) 179 MG/DL HDL CHOLESTEROL (test code = 2220) 55 MG/DL CALC LDL CHOL (test code = 2237) 156 MG/DL RISK RATIO LDL/HDL (test code = 2.84 RATIO 2238) CBC W/AUTO [id number] 00:00:00 Test Item Value Reference Range Interpretation Comments WBC (test code = 1001) 7.5 K/UL RBC (test code = 1002) 4.74 M/UL HEMOGLOBIN (test code = 1003) 13.7 G/DL HEMATOCRIT (test code = 1004) 41.7 % MCV (test code = 1005) 88.0 fL MCH (test code = 1006) 28.9 PG MCHC (test code = 1007) 32.9 G/DL RDW (test code = 1038) 12.6 % NEUTROPHILS (test code = 1008) 52.6 % LYMPHOCYTES (test code = 1010) 37.6 % MONOCYTES (test code = 1011) 6.3 % EOSINOPHILS (test code = 1012) 2.3 % BASOPHILS (test code = 1013) 0.8 % IMMATURE GRANULOCYTES (test 0.4 % code = 1036) NUCLEATED RBCS (test code = 0.0 /100WBC'S 1065) PLATELET COUNT (test code = 271 K/UL 1015) ABSOLUTE NEUTROPHILS (test code 3.93 K/UL = 1066) ABSOLUTE LYMPHOCYTES (test code 2.81 K/UL = 1067) ABSOLUTE MONOCYTES (test code = 0.47 K/UL 1068) ABSOLUTE EOSINOPHILS (test code 0.17 K/UL = 1040) ABSOLUTE BASOPHILS (test code = 0.06 K/UL 1069) ABS IMMATURE GRANULOCYTES (test 0.03 K/UL code = 1020) ABS NUCLEATED RBCS (test code = 0.00 K/UL 06473) [id number] 00:00:00 Test Item Value Reference Range Interpretation Comments TSH, THIRD GENERATION (test code 2.840 UIU/ML = 2821) [id number] 00:00:00 Test Item Value Reference Range Interpretation Comments TSH, THIRD GENERATION (test code 2.840 UIU/ML = 2821) [id number] 00:00:00 Test Item Value Reference Range Interpretation Comments TSH, THIRD GENERATION (test code 2.840 UIU/ML = 2821) HEMOGLOBIN [id number] 00:00:00 Test Item Value Reference Range Interpretation Comments HEMOGLOBIN A1c (test code = 01315) 7.5 % HEMOGLOBIN [id number] 00:00:00 Test Item Value Reference Range Interpretation Comments HEMOGLOBIN A1c (test code = 16161) 7.5 % HEMOGLOBIN [id number] 00:00:00 Test Item Value Reference Range Interpretation Comments HEMOGLOBIN A1c (test code = 58033) 7.5 % COMPREHENSIVE METABOLIC [id number] 00:00:00 Test Item Value Reference Range Interpretation Comments GLUCOSE (test code = 2217) 234 MG/DL BUN (test code = 2208) 14 MG/DL CREATININE (test code = 2214) 0.67 MG/DL eGFR AMER. (test code 124 ML/MIN/1.73 = 38048) eGFR NON- AMER. (test 107 ML/MIN/1.73 code = 16845) CALC BUN/CREAT (test code = 21 RATIO 2235) SODIUM (test code = 2231) 139 MEQ/L POTASSIUM (test code = 2228) 4.8 MEQ/L CHLORIDE (test code = 2215) 101 MEQ/L CARBON DIOXIDE (test code = 26 MEQ/L 2206) CALCIUM (test code = 2209) 9.8 MG/DL PROTEIN, TOTAL (test code = 7.5 G/DL 222) ALBUMIN (test code = 2201) 3.8 G/DL CALC GLOBULIN (test code = 3.7 G/DL 2240) CALC A/G RATIO (test code = 1.0 RATIO 2234) BILIRUBIN, TOTAL (test code = 0.2 MG/DL 2206) ALKALINE PHOSPHATASE (test 121 U/L code = 2203) AST (test code = 2218) 34 U/L ALT (test code = 2219) 33 U/L COMPREHENSIVE METABOLIC [id number] 00:00:00 Test Item Value Reference Range Interpretation Comments GLUCOSE (test code = 2217) 234 MG/DL BUN (test code = 2208) 14 MG/DL CREATININE (test code = 2214) 0.67 MG/DL eGFR AMER. (test code 124 ML/MIN/1.73 = 70657) eGFR NON- AMER. (test 107 ML/MIN/1.73 code = 07673) CALC BUN/CREAT (test code = 21 RATIO 2235) SODIUM (test code = 2231) 139 MEQ/L POTASSIUM (test code = 2228) 4.8 MEQ/L CHLORIDE (test code = 2215) 101 MEQ/L CARBON DIOXIDE (test code = 26 MEQ/L 2206) CALCIUM (test code = 2209) 9.8 MG/DL PROTEIN, TOTAL (test code = 7.5 G/DL 222) ALBUMIN (test code = 2201) 3.8 G/DL CALC GLOBULIN (test code = 3.7 G/DL 2240) CALC A/G RATIO (test code = 1.0 RATIO 2234) BILIRUBIN, TOTAL (test code = 0.2 MG/DL 2206) ALKALINE PHOSPHATASE (test 121 U/L code = 2204) AST (test code = 2218) 34 U/L ALT (test code = 2219) 33 U/L CBC W/AUTO [id number] 00:00:00 Test Item Value Reference Range Interpretation Comments WBC (test code = 1001) 7.5 K/UL RBC (test code = 1002) 4.74 M/UL HEMOGLOBIN (test code = 1003) 13.7 G/DL HEMATOCRIT (test code = 1004) 41.7 % MCV (test code = 1005) 88.0 fL MCH (test code = 1006) 28.9 PG MCHC (test code = 1007) 32.9 G/DL RDW (test code = 1038) 12.6 % NEUTROPHILS (test code = 1008) 52.6 % LYMPHOCYTES (test code = 1010) 37.6 % MONOCYTES (test code = 1011) 6.3 % EOSINOPHILS (test code = 1012) 2.3 % BASOPHILS (test code = 1013) 0.8 % IMMATURE GRANULOCYTES (test 0.4 % code = 1036) NUCLEATED RBCS (test code = 0.0 /100WBC'S 1065) PLATELET COUNT (test code = 271 K/UL 1015) ABSOLUTE NEUTROPHILS (test code 3.93 K/UL = 1066) ABSOLUTE LYMPHOCYTES (test code 2.81 K/UL = 1067) ABSOLUTE MONOCYTES (test code = 0.47 K/UL 1068) ABSOLUTE EOSINOPHILS (test code 0.17 K/UL = 1040) ABSOLUTE BASOPHILS (test code = 0.06 K/UL 1069) ABS IMMATURE GRANULOCYTES (test 0.03 K/UL code = 1020) ABS NUCLEATED RBCS (test code = 0.00 K/UL 52298) CBC W/AUTO [id number] 00:00:00 Test Item Value Reference Range Interpretation Comments WBC (test code = 1001) 7.5 K/UL RBC (test code = 1002) 4.74 M/UL HEMOGLOBIN (test code = 1003) 13.7 G/DL HEMATOCRIT (test code = 1004) 41.7 % MCV (test code = 1005) 88.0 fL MCH (test code = 1006) 28.9 PG MCHC (test code = 1007) 32.9 G/DL RDW (test code = 1038) 12.6 % NEUTROPHILS (test code = 1008) 52.6 % LYMPHOCYTES (test code = 1010) 37.6 % MONOCYTES (test code = 1011) 6.3 % EOSINOPHILS (test code = 1012) 2.3 % BASOPHILS (test code = 1013) 0.8 % IMMATURE GRANULOCYTES (test 0.4 % code = 1036) NUCLEATED RBCS (test code = 0.0 /100WBC'S 1065) PLATELET COUNT (test code = 271 K/UL 1015) ABSOLUTE NEUTROPHILS (test code 3.93 K/UL = 1066) ABSOLUTE LYMPHOCYTES (test code 2.81 K/UL = 1067) ABSOLUTE MONOCYTES (test code = 0.47 K/UL 1068) ABSOLUTE EOSINOPHILS (test code 0.17 K/UL = 1040) ABSOLUTE BASOPHILS (test code = 0.06 K/UL 1069) ABS IMMATURE GRANULOCYTES (test 0.03 K/UL code = 1020) ABS NUCLEATED RBCS (test code = 0.00 K/UL 42484) MICROALBUMIN, [id number] 00:00:00 Test Item Value Reference Range Interpretation Comments ALBUMIN, URINE, RANDOM (test code = 1.1 MG/DL 14600) MICROALBUMIN, [id number] 00:00:00 Test Item Value Reference Range Interpretation Comments ALBUMIN, URINE, RANDOM (test code = 1.1 MG/DL 03393) LIPID [id number] 00:00:00 Test Item Value Reference Range Interpretation Comments CHOLESTEROL (test code = 2210) 246 MG/DL TRIGLYCERIDES (test code = 2232) 133 MG/DL HDL CHOLESTEROL (test code = 2220) 53 MG/DL CALC LDL CHOL (test code = 2237) 166 MG/DL RISK RATIO LDL/HDL (test code = 3.13 RATIO 2238) COMPREHENSIVE METABOLIC [id number] 00:00:00 Test Item Value Reference Range Interpretation Comments GLUCOSE (test code = 2217) 304 MG/DL BUN (test code = 2208) 10 MG/DL CREATININE (test code = 2214) 0.64 MG/DL eGFR AMER. (test code 126 ML/MIN/1.73 = 59560) eGFR NON- AMER. (test 109 ML/MIN/1.73 code = 65154) CALC BUN/CREAT (test code = 16 RATIO 2235) SODIUM (test code = 2231) 135 MEQ/L POTASSIUM (test code = 2228) 4.9 MEQ/L CHLORIDE (test code = 2215) 97 MEQ/L CARBON DIOXIDE (test code = 23 MEQ/L 2205) CALCIUM (test code = 2209) 9.7 MG/DL PROTEIN, TOTAL (test code = 7.6 G/DL 2228) ALBUMIN (test code = 2201) 4.2 G/DL CALC GLOBULIN (test code = 3.4 G/DL 2240) CALC A/G RATIO (test code = 1.2 RATIO 2234) BILIRUBIN, TOTAL (test code = 0.2 MG/DL 2206) ALKALINE PHOSPHATASE (test 112 U/L code = 2204) AST (test code = 2218) 41 U/L ALT (test code = 2219) 49 U/L COMPREHENSIVE METABOLIC [id number] 00:00:00 Test Item Value Reference Range Interpretation Comments GLUCOSE (test code = 2217) 304 MG/DL BUN (test code = 2208) 10 MG/DL CREATININE (test code = 2214) 0.64 MG/DL eGFR AMER. (test code 126 ML/MIN/1.73 = 90240) eGFR NON- AMER. (test 109 ML/MIN/1.73 code = 82656) CALC BUN/CREAT (test code = 16 RATIO 2235) SODIUM (test code = 2231) 135 MEQ/L POTASSIUM (test code = 2228) 4.9 MEQ/L CHLORIDE (test code = 2215) 97 MEQ/L CARBON DIOXIDE (test code = 23 MEQ/L 2205) CALCIUM (test code = 2209) 9.7 MG/DL PROTEIN, TOTAL (test code = 7.6 G/DL 2228) ALBUMIN (test code = 2201) 4.2 G/DL CALC GLOBULIN (test code = 3.4 G/DL 2240) CALC A/G RATIO (test code = 1.2 RATIO 2234) BILIRUBIN, TOTAL (test code = 0.2 MG/DL 2206) ALKALINE PHOSPHATASE (test 112 U/L code = 2204) AST (test code = 2218) 41 U/L ALT (test code = 2219) 49 U/L LIPID [id number] 00:00:00 Test Item Value Reference Range Interpretation Comments CHOLESTEROL (test code = 2210) 246 MG/DL TRIGLYCERIDES (test code = 2232) 133 MG/DL HDL CHOLESTEROL (test code = 2220) 53 MG/DL CALC LDL CHOL (test code = 2237) 166 MG/DL RISK RATIO LDL/HDL (test code = 3.13 RATIO 2238) HEMOGLOBIN [id number] 00:00:00 Test Item Value Reference Range Interpretation Comments HEMOGLOBIN A1c (test code = 28503) 10.7 % HEMOGLOBIN [id number] 00:00:00 Test Item Value Reference Range Interpretation Comments HEMOGLOBIN A1c (test code = 12872) 10.7 % HEMOGLOBIN [id number] 00:00:00 Test Item Value Reference Range Interpretation Comments HEMOGLOBIN A1c (test code = 84167) 10.7 % CBC W/AUTO [id number] 00:00:00 Test Item Value Reference Range Interpretation Comments WBC (test code = 1001) 7.4 K/UL RBC (test code = 1002) 5.16 M/UL HEMOGLOBIN (test code = 1003) 14.9 G/DL HEMATOCRIT (test code = 1004) 44.4 % MCV (test code = 1005) 86.0 fL MCH (test code = 1006) 28.9 PG MCHC (test code = 1007) 33.6 G/DL RDW (test code = 1038) 12.1 % NEUTROPHILS (test code = 1008) 43.4 % LYMPHOCYTES (test code = 1010) 48.3 % MONOCYTES (test code = 1011) 5.7 % EOSINOPHILS (test code = 1012) 1.9 % BASOPHILS (test code = 1013) 0.7 % PLATELET COUNT (test code = 1015) 218 K/UL CBC W/AUTO [id number] 00:00:00 Test Item Value Reference Range Interpretation Comments WBC (test code = 1001) 7.4 K/UL RBC (test code = 1002) 5.16 M/UL HEMOGLOBIN (test code = 1003) 14.9 G/DL HEMATOCRIT (test code = 1004) 44.4 % MCV (test code = 1005) 86.0 fL MCH (test code = 1006) 28.9 PG MCHC (test code = 1007) 33.6 G/DL RDW (test code = 1038) 12.1 % NEUTROPHILS (test code = 1008) 43.4 % LYMPHOCYTES (test code = 1010) 48.3 % MONOCYTES (test code = 1011) 5.7 % EOSINOPHILS (test code = 1012) 1.9 % BASOPHILS (test code = 1013) 0.7 % PLATELET COUNT (test code = 1015) 218 K/UL CBC W/AUTO [id number] 00:00:00 Test Item Value Reference Range Interpretation Comments WBC (test code = 1001) 7.4 K/UL RBC (test code = 1002) 5.16 M/UL HEMOGLOBIN (test code = 1003) 14.9 G/DL HEMATOCRIT (test code = 1004) 44.4 % MCV (test code = 1005) 86.0 fL MCH (test code = 1006) 28.9 PG MCHC (test code = 1007) 33.6 G/DL RDW (test code = 1038) 12.1 % NEUTROPHILS (test code = 1008) 43.4 % LYMPHOCYTES (test code = 1010) 48.3 % MONOCYTES (test code = 1011) 5.7 % EOSINOPHILS (test code = 1012) 1.9 % BASOPHILS (test code = 1013) 0.7 % PLATELET COUNT (test code = 1015) 218 K/UL HCG, [id number] 00:00:00 Test Item Value Reference Range Interpretation Comments HCG, QUANTITATIVE (test code = <5 MIU/ML 2506) HCG, [id number] 00:00:00 Test Item Value Reference Range Interpretation Comments HCG, QUANTITATIVE (test code = <5 MIU/ML 2506) HCG, [id number] 00:00:00 Test Item Value Reference Range Interpretation Comments HCG, QUANTITATIVE (test code = <5 MIU/ML 2506) [id number] 00:00:00 Test Item Value Reference Range Interpretation Comments PTT (test code = 1403) 28.8 SECONDS [id number] 00:00:00 Test Item Value Reference Range Interpretation Comments PTT (test code = 1403) 28.8 SECONDS [id number] 00:00:00 Test Item Value Reference Range Interpretation Comments PTT (test code = 1403) 28.8 SECONDS [id number] 00:00:00 Test Item Value Reference Range Interpretation Comments PTT (test code = 1403) 28.8 SECONDS PROTHROMBIN TIME (PT)2020-04-24 00:00:00 Test Item Value Reference Range Interpretation Comments PROTHROMBIN TIME (PT) (test code 13.5 SECONDS = 1402) INR (test code = 57995) 1.0 PROTHROMBIN TIME (PT)2020-04-24 00:00:00 Test Item Value Reference Range Interpretation Comments PROTHROMBIN TIME (PT) (test code 13.5 SECONDS = 1402) INR (test code = 74946) 1.0 URINE CULTURE, NO [id number] 00:00:00 Test Item Value Reference Range Interpretation Comments URINE CULTURE, NO SPECIMEN NUMBER: SENS (test code = [id number]) URINE CULTURE, NO [id number] 00:00:00 Test Item Value Reference Range Interpretation Comments URINE CULTURE, NO SPECIMEN NUMBER: SENS (test code = [id number]) COMPREHENSIVE METABOLIC [id number] 00:00:00 Test Item Value Reference Range Interpretation Comments GLUCOSE (test code = 2217) 362 MG/DL BUN (test code = 2208) 13 MG/DL CREATININE (test code = 2214) 0.68 MG/DL eGFR AMER. (test code 123 ML/MIN/1.73 = 73855) eGFR NON- AMER. (test 106 ML/MIN/1.73 code = 59495) CALC BUN/CREAT (test code = 19 RATIO 2235) SODIUM (test code = 2231) 137 MEQ/L POTASSIUM (test code = 2228) 3.8 MEQ/L CHLORIDE (test code = 2215) 96 MEQ/L CARBON DIOXIDE (test code = 26 MEQ/L 2205) CALCIUM (test code = 2209) 10.3 MG/DL PROTEIN, TOTAL (test code = 7.9 G/DL 2228) ALBUMIN (test code = 2201) 3.9 G/DL CALC GLOBULIN (test code = 4.0 G/DL 2240) CALC A/G RATIO (test code = 1.0 RATIO 2234) BILIRUBIN, TOTAL (test code = <0.2 MG/DL 2206) ALKALINE PHOSPHATASE (test 133 U/L code = 2204) AST (test code = 2218) 28 U/L ALT (test code = 2219) 43 U/L COMPREHENSIVE METABOLIC [id number] 00:00:00 Test Item Value Reference Range Interpretation Comments GLUCOSE (test code = 2217) 362 MG/DL BUN (test code = 2208) 13 MG/DL CREATININE (test code = 2214) 0.68 MG/DL eGFR AMER. (test code 123 ML/MIN/1.73 = 40279) eGFR NON- AMER. (test 106 ML/MIN/1.73 code = 98992) CALC BUN/CREAT (test code = 19 RATIO 2235) SODIUM (test code = 2231) 137 MEQ/L POTASSIUM (test code = 2228) 3.8 MEQ/L CHLORIDE (test code = 2215) 96 MEQ/L CARBON DIOXIDE (test code = 26 MEQ/L 2205) CALCIUM (test code = 2209) 10.3 MG/DL PROTEIN, TOTAL (test code = 7.9 G/DL 2228) ALBUMIN (test code = 220) 3.9 G/DL CALC GLOBULIN (test code = 4.0 G/DL 2239) CALC A/G RATIO (test code = 1.0 RATIO 2233) BILIRUBIN, TOTAL (test code = <0.2 MG/DL 2206) ALKALINE PHOSPHATASE (test 133 U/L code = 2204) AST (test code = 2218) 28 U/L ALT (test code = 2219) 43 U/L MICROALBUMIN/CREATININE, RANDOM AND [id number] 00:00:00 Test Item Value Reference Range Interpretation Comments CREATININE, URINE, CONC. (test 156.0 MG/DL code = 2072) ALBUMIN, URINE, RANDOM (test code 1.3 MG/DL = 20351) CALC ALBUMIN/CREAT, RND (test 8 MG/G code = 08620) MICROALBUMIN/CREATININE, RANDOM AND [id number] 00:00:00 Test Item Value Reference Range Interpretation Comments CREATININE, URINE, CONC. (test 156.0 MG/DL code = 2072) ALBUMIN, URINE, RANDOM (test code 1.3 MG/DL = 15911) CALC ALBUMIN/CREAT, RND (test 8 MG/G code = 51645) CHLAMYDIA, AMPLIFIED, [id number] 00:00:00 Test Item Value Reference Range Interpretation Comments CHLAMYDIA, NAAT (test code = 95587) NEGATIVE CHLAMYDIA, AMPLIFIED, [id number] 00:00:00 Test Item Value Reference Range Interpretation Comments CHLAMYDIA, NAAT (test code = 98409) NEGATIVE GC, AMPLIFIED, [id number] 00:00:00 Test Item Value Reference Range Interpretation Comments GONORRHEA, NAAT (test code = 66590) NEGATIVE GC, AMPLIFIED, [id number] 00:00:00 Test Item Value Reference Range Interpretation Comments GONORRHEA, NAAT (test code = 81878) NEGATIVE HIV AB/AG COMBO RFLX [id number] 00:00:00 Test Item Value Reference Range Interpretation Comments HIV 1/2 4TH GEN, RFLX CONF (test NON-REACTIVE code = 3514) HIV AB/AG COMBO RFLX [id number] 00:00:00 Test Item Value Reference Range Interpretation Comments HIV 1/2 4TH GEN, RFLX CONF (test NON-REACTIVE code = 3514) ACUTE HEPATITIS [id number] 00:00:00 Test Item Value Reference Range Interpretation Comments HEPATITIS A IgM (test code = NON-REACTIVE 14739) HEPATITIS B CORE IgM (test code NON-REACTIVE = 4644) HEPATITIS B SURF AG (test code = NON-REACTIVE 2739) HEPATITIS C ANTIBODY (test code NON-REACTIVE = 4675) INTERPRETATION HEPATITIS A: (NOTE) (test code = 2552) INTERPRETATION HEPATITIS B: (NOTE) (test code = 37699) INTERPRETATION HEPATITIS C: (NOTE) (test code = 84688) ACUTE HEPATITIS [id number] 00:00:00 Test Item Value Reference Range Interpretation Comments HEPATITIS A IgM (test code = NON-REACTIVE 61386) HEPATITIS B CORE IgM (test code NON-REACTIVE = 4644) HEPATITIS B SURF AG (test code = NON-REACTIVE 2739) HEPATITIS C ANTIBODY (test code NON-REACTIVE = 4675) INTERPRETATION HEPATITIS A: (NOTE) (test code = 2552) INTERPRETATION HEPATITIS B: (NOTE) (test code = 62747) INTERPRETATION HEPATITIS C: (NOTE) (test code = 94699) [id number] 00:00:00 Test Item Value Reference Range Interpretation Comments RPR RESULT (test code = NON-REACTIVE 3501) RPR TITER (test code = 3500) NOT INDIC. TITER [id number] 00:00:00 Test Item Value Reference Range Interpretation Comments RPR RESULT (test code = NON-REACTIVE 3501) RPR TITER (test code = 3500) NOT INDIC. TITER [id number] 00:00:00 Test Item Value Reference Range Interpretation Comments RPR RESULT (test code = NON-REACTIVE 3501) RPR TITER (test code = 3500) NOT INDIC. TITER VAGINAL PATHOGENS DNA [id number] 00:00:00 Test Item Value Reference Range Interpretation Comments POPPY SPECIES (test code = ) POSITIVE G. VAGINALIS (test code = ) POSITIVE T. VAGINALIS (test code = ) NEGATIVE VAGINAL PATHOGENS DNA [id number] 00:00:00 Test Item Value Reference Range Interpretation Comments POPPY SPECIES (test code = ) POSITIVE G. VAGINALIS (test code = 23152) POSITIVE T. VAGINALIS (test code = 49006) NEGATIVE HEMOGLOBIN [id number] 00:00:00 Test Item Value Reference Range Interpretation Comments HEMOGLOBIN A1c (test code = 81010) 12.6 % HEMOGLOBIN [id number] 00:00:00 Test Item Value Reference Range Interpretation Comments HEMOGLOBIN A1c (test code = 70748) 12.6 % HEMOGLOBIN [id number] 00:00:00 Test Item Value Reference Range Interpretation Comments HEMOGLOBIN A1c (test code = 19604) 12.6 % LIPID [id number] 00:00:00 Test Item Value Reference Range Interpretation Comments CHOLESTEROL (test code = 2210) 218 MG/DL TRIGLYCERIDES (test code = 2232) 116 MG/DL HDL CHOLESTEROL (test code = 2220) 55 MG/DL CALC LDL CHOL (test code = 2237) 140 MG/DL RISK RATIO LDL/HDL (test code = 2.55 RATIO 2238) COMPREHENSIVE METABOLIC [id number] 00:00:00 Test Item Value Reference Range Interpretation Comments GLUCOSE (test code = 2217) 250 MG/DL BUN (test code = 2208) 14 MG/DL CREATININE (test code = 2214) 0.62 MG/DL eGFR AMER. (test code 128 ML/MIN/1.73 = 20739) eGFR NON- AMER. (test 110 ML/MIN/1.73 code = 66954) CALC BUN/CREAT (test code = 23 RATIO 2235) SODIUM (test code = 2231) 139 MEQ/L POTASSIUM (test code = 2228) 4.8 MEQ/L CHLORIDE (test code = 2215) 100 MEQ/L CARBON DIOXIDE (test code = 28 MEQ/L 2206) CALCIUM (test code = 2209) 9.3 MG/DL PROTEIN, TOTAL (test code = 7.7 G/DL 222) ALBUMIN (test code = 2201) 4.1 G/DL CALC GLOBULIN (test code = 3.6 G/DL 2240) CALC A/G RATIO (test code = 1.1 RATIO 2234) BILIRUBIN, TOTAL (test code = 0.3 MG/DL 220) ALKALINE PHOSPHATASE (test 114 U/L code = 2204) AST (test code = 2218) 43 U/L ALT (test code = 2219) 61 U/L COMPREHENSIVE METABOLIC [id number] 00:00:00 Test Item Value Reference Range Interpretation Comments GLUCOSE (test code = 2217) 250 MG/DL BUN (test code = 2208) 14 MG/DL CREATININE (test code = 2214) 0.62 MG/DL eGFR AMER. (test code 128 ML/MIN/1.73 = 08143) eGFR NON- AMER. (test 110 ML/MIN/1.73 code = 36446) CALC BUN/CREAT (test code = 23 RATIO 2235) SODIUM (test code = 2231) 139 MEQ/L POTASSIUM (test code = 2228) 4.8 MEQ/L CHLORIDE (test code = 2215) 100 MEQ/L CARBON DIOXIDE (test code = 28 MEQ/L 2206) CALCIUM (test code = 2209) 9.3 MG/DL PROTEIN, TOTAL (test code = 7.7 G/DL 2228) ALBUMIN (test code = 2201) 4.1 G/DL CALC GLOBULIN (test code = 3.6 G/DL 2240) CALC A/G RATIO (test code = 1.1 RATIO 2234) BILIRUBIN, TOTAL (test code = 0.3 MG/DL 2206) ALKALINE PHOSPHATASE (test 114 U/L code = 2204) AST (test code = 2218) 43 U/L ALT (test code = 2219) 61 U/L LIPID [id number] 00:00:00 Test Item Value Reference Range Interpretation Comments CHOLESTEROL (test code = 2210) 218 MG/DL TRIGLYCERIDES (test code = 2232) 116 MG/DL HDL CHOLESTEROL (test code = 2220) 55 MG/DL CALC LDL CHOL (test code = 2237) 140 MG/DL RISK RATIO LDL/HDL (test code = 2.55 RATIO 2238) PAP TEST, THINPREP, [id number] 00:00:00 Test Item Value Reference Range Interpretation Comments SOURCE: (test code = 8001) Cervical SLIDES: (test code = 8011) 1 LMP: (test code = 8021) NOT GIVEN SPECIMEN ADEQUACY: (test (NOTE) code = 05811) INTERPRETATION: (test code ASCUS/EPITH. = 83435) ABNORMALITY; SEE BELOW [employer] HELPER: (test Otilio code = 8101) DON Clarke(ASCP) PATHOLOGIST INTERPRETATION González Cooper M.D. BY: (test code = 8122) LOCATION: (test code = (NOTE) 70711) CPT: (test code = 8140) (NOTE) PAP TEST, THINPREP, [id number] 00:00:00 Test Item Value Reference Range Interpretation Comments SOURCE: (test code = 8001) Cervical SLIDES: (test code = 8011) 1 LMP: (test code = 8021) NOT GIVEN SPECIMEN ADEQUACY: (test (NOTE) code = 79270) INTERPRETATION: (test code ASCUS/EPITH. = 71650) ABNORMALITY; SEE BELOW S[employer] DY[employer] HELPER: (test Otilio code = 8101) DON Clarke(ASCP) PATHOLOGIST INTERPRETATION González Cooper M.D. BY: (test code = 8122) LOCATION: (test code = (NOTE) 22045) CPT: (test code = 8140) (NOTE) HPV HIGH RISK WITH GENOTYPE, [id number] 00:00:00 Test Item Value Reference Range Interpretation Comments HPV HIGH RISK INTERP (test code = POSITIVE 34777) HPV 16 (test code = 71860) NEGATIVE HPV 18 (test code = 28568) NEGATIVE HPV, HR, OTHER GENOTYPES (test code POSITIVE = 08862) HIV AB/AG COMBO RFLX [id number] 00:00:00 Test Item Value Reference Range Interpretation Comments HIV 1/2 4TH GEN, RFLX CONF (test NON-REACTIVE code = 3514) ACUTE HEPATITIS [id number] 00:00:00 Test Item Value Reference Range Interpretation Comments HEPATITIS A IgM (test code = NON-REACTIVE 67569) HEPATITIS B CORE IgM (test code NON-REACTIVE = 7897) HEPATITIS B SURF AG (test code = NON-REACTIVE 0659) HEPATITIS C ANTIBODY (test code NON-REACTIVE = 0880) INTERPRETATION HEPATITIS A: (NOTE) (test code = 2552) INTERPRETATION HEPATITIS B: (NOTE) (test code = 46276) INTERPRETATION HEPATITIS C: (NOTE) (test code = 56847) ACUTE HEPATITIS [id number] 00:00:00 Test Item Value Reference Range Interpretation Comments HEPATITIS A IgM (test code = NON-REACTIVE 57241) HEPATITIS B CORE IgM (test code NON-REACTIVE = 4644) HEPATITIS B SURF AG (test code = NON-REACTIVE 2739) HEPATITIS C ANTIBODY (test code NON-REACTIVE = 4675) INTERPRETATION HEPATITIS A: (NOTE) (test code = 2552) INTERPRETATION HEPATITIS B: (NOTE) (test code = 22786) INTERPRETATION HEPATITIS C: (NOTE) (test code = 68109) [id number] 00:00:00 Test Item Value Reference Range Interpretation Comments RPR RESULT (test code = NON-REACTIVE 3501) RPR TITER (test code = 3500) NOT INDIC. TITER [id number] 00:00:00 Test Item Value Reference Range Interpretation Comments RPR RESULT (test code = NON-REACTIVE 3501) RPR TITER (test code = 3500) NOT INDIC. TITER [id number] 00:00:00 Test Item Value Reference Range Interpretation Comments RPR RESULT (test code = NON-REACTIVE 3501) RPR TITER (test code = 3500) NOT INDIC. TITER VAGINAL PATHOGENS DNA [id number] 00:00:00 Test Item Value Reference Range Interpretation Comments POPPY SPECIES (test code = 64559) NEGATIVE G. VAGINALIS (test code = 02166) NEGATIVE T. VAGINALIS (test code = 59850) NEGATIVE VAGINAL PATHOGENS DNA [id number] 00:00:00 Test Item Value Reference Range Interpretation Comments POPPY SPECIES (test code = 33191) NEGATIVE G. VAGINALIS (test code = 81271) NEGATIVE T. VAGINALIS (test code = 98308) NEGATIVE HPV HIGH RISK WITH GENOTYPE, [id number] 00:00:00 Test Item Value Reference Range Interpretation Comments HPV HIGH RISK INTERP (test code = POSITIVE 36879) HPV 16 (test code = 60708) NEGATIVE HPV 18 (test code = 83081) NEGATIVE HPV, HR, OTHER GENOTYPES (test code POSITIVE = 45844) HIV AB/AG COMBO RFLX [id number] 00:00:00 Test Item Value Reference Range Interpretation Comments HIV 1/2 4TH GEN, RFLX CONF (test NON-REACTIVE code = 3514) HEMOGLOBIN [id number] 00:00:00 Test Item Value Reference Range Interpretation Comments HEMOGLOBIN A1c (test code = 65543) 9.0 % HEMOGLOBIN [id number] 00:00:00 Test Item Value Reference Range Interpretation Comments HEMOGLOBIN A1c (test code = 61083) 9.0 % HEMOGLOBIN [id number] 00:00:00 Test Item Value Reference Range Interpretation Comments HEMOGLOBIN A1c (test code = 22164) 9.0 % COMPREHENSIVE METABOLIC [id number] 00:00:00 Test Item Value Reference Range Interpretation Comments GLUCOSE (test code = 2217) 203 MG/DL BUN (test code = 2208) 8 MG/DL CREATININE (test code = 2214) 0.56 MG/DL eGFR AMER. (test code 132 ML/MIN/1.73 = 35829) eGFR NON- AMER. (test 114 ML/MIN/1.73 code = 70959) CALC BUN/CREAT (test code = 14 RATIO 5) SODIUM (test code = 2231) 138 MEQ/L POTASSIUM (test code = 2228) 4.3 MEQ/L CHLORIDE (test code = 2215) 98 MEQ/L CARBON DIOXIDE (test code = 28 MEQ/L 2205) CALCIUM (test code = 2209) 9.9 MG/DL PROTEIN, TOTAL (test code = 7.8 G/DL 2228) ALBUMIN (test code = 2201) 4.1 G/DL CALC GLOBULIN (test code = 3.7 G/DL 0) CALC A/G RATIO (test code = 1.1 RATIO 4) BILIRUBIN, TOTAL (test code = 0.4 MG/DL 2206) ALKALINE PHOSPHATASE (test 108 U/L code = 2204) AST (test code = 2218) 44 U/L ALT (test code = 2219) 39 U/L COMPREHENSIVE METABOLIC [id number] 00:00:00 Test Item Value Reference Range Interpretation Comments GLUCOSE (test code = 2217) 203 MG/DL BUN (test code = 2208) 8 MG/DL CREATININE (test code = 2214) 0.56 MG/DL eGFR AMER. (test code 132 ML/MIN/1.73 = 28202) eGFR NON- AMER. (test 114 ML/MIN/1.73 code = 93384) CALC BUN/CREAT (test code = 14 RATIO 2235) SODIUM (test code = 2231) 138 MEQ/L POTASSIUM (test code = 2228) 4.3 MEQ/L CHLORIDE (test code = 2215) 98 MEQ/L CARBON DIOXIDE (test code = 28 MEQ/L 2205) CALCIUM (test code = 2209) 9.9 MG/DL PROTEIN, TOTAL (test code = 7.8 G/DL 2228) ALBUMIN (test code = 2201) 4.1 G/DL CALC GLOBULIN (test code = 3.7 G/DL 224) CALC A/G RATIO (test code = 1.1 RATIO 223) BILIRUBIN, TOTAL (test code = 0.4 MG/DL 2206) ALKALINE PHOSPHATASE (test 108 U/L code = 2204) AST (test code = 2218) 44 U/L ALT (test code = 2219) 39 U/L LIPID [id number] 00:00:00 Test Item Value Reference Range Interpretation Comments CHOLESTEROL (test code = 2210) 225 MG/DL TRIGLYCERIDES (test code = 2232) 103 MG/DL HDL CHOLESTEROL (test code = 2220) 58 MG/DL CALC LDL CHOL (test code = 2237) 146 MG/DL RISK RATIO LDL/HDL (test code = 2.52 RATIO 2238) LIPID [id number] 00:00:00 Test Item Value Reference Range Interpretation Comments CHOLESTEROL (test code = 2210) 225 MG/DL TRIGLYCERIDES (test code = 2232) 103 MG/DL HDL CHOLESTEROL (test code = 2220) 58 MG/DL CALC LDL CHOL (test code = 2237) 146 MG/DL RISK RATIO LDL/HDL (test code = 2.52 RATIO 2238) COMPREHENSIVE METABOLIC [id number] 00:00:00 Test Item Value Reference Range Interpretation Comments GLUCOSE (test code = 2217) 254 MG/DL BUN (test code = 2208) 9 MG/DL CREATININE (test code = 2214) 0.58 MG/DL eGFR AMER. (test code 134 ML/MIN/1.73 = 07704) eGFR NON- AMER. (test 115 ML/MIN/1.73 code = 43515) CALC BUN/CREAT (test code = 16 RATIO 2235) SODIUM (test code = 2231) 139 MEQ/L POTASSIUM (test code = 2228) 4.4 MEQ/L CHLORIDE (test code = 2215) 97 MEQ/L CARBON DIOXIDE (test code = 30 MEQ/L 2205) CALCIUM (test code = 2209) 9.7 MG/DL PROTEIN, TOTAL (test code = 7.6 G/DL 2228) ALBUMIN (test code = 2201) 4.0 G/DL CALC GLOBULIN (test code = 3.6 G/DL 2239) CALC A/G RATIO (test code = 1.1 RATIO 2233) BILIRUBIN, TOTAL (test code = 0.4 MG/DL 2206) ALKALINE PHOSPHATASE (test 115 U/L code = 2204) AST (test code = 2218) 63 U/L ALT (test code = 2219) 77 U/L LIPID [id number] 00:00:00 Test Item Value Reference Range Interpretation Comments CHOLESTEROL (test code = 2210) 251 MG/DL TRIGLYCERIDES (test code = 2232) 166 MG/DL HDL CHOLESTEROL (test code = 2220) 58 MG/DL CALC LDL CHOL (test code = 2237) 160 MG/DL RISK RATIO LDL/HDL (test code = 2.76 RATIO 2238) LIPID [id number] 00:00:00 Test Item Value Reference Range Interpretation Comments CHOLESTEROL (test code = 2210) 251 MG/DL TRIGLYCERIDES (test code = 2232) 166 MG/DL HDL CHOLESTEROL (test code = 2220) 58 MG/DL CALC LDL CHOL (test code = 2237) 160 MG/DL RISK RATIO LDL/HDL (test code = 2.76 RATIO 2238) HEMOGLOBIN [id number] 00:00:00 Test Item Value Reference Range Interpretation Comments HEMOGLOBIN A1c (test code = 66682) 10.3 % HEMOGLOBIN [id number] 00:00:00 Test Item Value Reference Range Interpretation Comments HEMOGLOBIN A1c (test code = 64379) 10.3 % HEMOGLOBIN [id number] 00:00:00 Test Item Value Reference Range Interpretation Comments HEMOGLOBIN A1c (test code = 91070) 10.3 % COMPREHENSIVE METABOLIC [id number] 00:00:00 Test Item Value Reference Range Interpretation Comments GLUCOSE (test code = 2217) 254 MG/DL BUN (test code = 2208) 9 MG/DL CREATININE (test code = 2214) 0.58 MG/DL eGFR AMER. (test code 134 ML/MIN/1.73 = 19114) eGFR NON- AMER. (test 115 ML/MIN/1.73 code = 91108) CALC BUN/CREAT (test code = 16 RATIO 2235) SODIUM (test code = 2231) 139 MEQ/L POTASSIUM (test code = 2228) 4.4 MEQ/L CHLORIDE (test code = 2215) 97 MEQ/L CARBON DIOXIDE (test code = 30 MEQ/L 2205) CALCIUM (test code = 2209) 9.7 MG/DL PROTEIN, TOTAL (test code = 7.6 G/DL 2228) ALBUMIN (test code = 2201) 4.0 G/DL CALC GLOBULIN (test code = 3.6 G/DL 2239) CALC A/G RATIO (test code = 1.1 RATIO 4) BILIRUBIN, TOTAL (test code = 0.4 MG/DL 2206) ALKALINE PHOSPHATASE (test 115 U/L code = 2204) AST (test code = 2218) 63 U/L ALT (test code = 2219) 77 U/L
[2022-09-27] MEDS ORDERED: dexAMETHasone 10 MG/ML VIAL ONE (18:27)
[2022-09-27] MEDS ORDERED: KETOROLAC 30 MG/ML INJ ONE (18:28)
[2022-09-27] MEDS ORDERED: HYDROCODONE/APAP 10/325 TAB ONE (18:28)
--- NOTE | 2022-09-27 19:00 | RAD REPORT ---
EXAM DESCRIPTION: US - Extremity Venous [facility] Ltd - 09/27/2022 6:41 pm CLINICAL HISTORY: Pain;Swelling Leg swelling and edema. COMPARISON: No comparisons FINDINGS: Right lower extremity venous system was interrogated with Doppler technique. Normal flow, compressibility and augmentation was noted. There is no DVT present. IMPRESSION: No evidence of right lower extremity deep venous thrombosis.
--- NOTE | 2022-09-27 19:08 | EDPHYS ---
Physician Documentation [facility] Name: Kerri Jacobson Age: 47 yrs Sex: Female : 1975 Arrival Date: 09/27/2022 Time: 17:41 Bed 13 Private MD: ED Physician Cecil Lui HPI: 09/27 21:05 This 47 yrs old Black Female presents to ER via Ambulatory with complaints of Hip Pain. kb 21:05 The patient presents with pain that is acute, with no known mechanism of injury. The kb symptoms are located in the right low back. The pain radiates to the right leg. The problem was sustained from unknown cause. Onset: The symptoms/episode began/occurred 1 month(s) ago. Modifying factors: The patient symptoms are alleviated by nothing, the patient symptoms are aggravated by any movement. Associated signs and symptoms: Pertinent positives: tingling, Pertinent negatives: dysuria, incontinence, urinary retention. Severity of symptoms: At their worst the symptoms were moderate, in the emergency department the symptoms are unchanged. The patient has experienced similar episodes in the past. The patient has not recently seen a physician. Pt reports pain to right low back/buttock that started over a month ago. states pain has been intermittent. Has had similar pain with sciatica in the past, but this time the pain is radiating lower, to foot, and she has tingling to first and second toes. Reports swelling to bilateral feet, which is normal for her after working on her feet all day. 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 - Social history:: Smoking status: Patient reports the use of cigarette tobacco products, smokes one-half pack cigarettes per day. ROS: 21:03 Constitutional: Negative for fever, chills, and weight loss. kb 21:03 Back: Positive for of the right low back. 21:03 All other systems are negative. Exam: 21:03 Constitutional: This is a well developed, well nourished patient who is awake, alert, kb and in no acute distress. Head/Face: Normocephalic, atraumatic. ENT: Moist Mucous membranes Cardiovascular: Regular rate and rhythm with a normal S1 and S2. No gallops, murmurs, or rubs. No pulse deficits. Respiratory: Respirations even and unlabored. No increased work of breathing. Talking in full sentences Skin: Warm, dry with normal turgor. Normal color. MS/ Extremity: Pulses equal, no cyanosis. Neurovascular intact. Full, normal range of motion. Neuro: Awake and alert, GCS 15, oriented to person, place, time, and situation. Moves all extremities. Normal gait. 21:03 Back: pain, that is moderate, of the right low back, ROM is normal, normal spinal alignment noted, CVA tenderness, is absent, vertebral tenderness, is not appreciated. 21:03 Musculoskeletal/extremity: Extremities: grossly normal except: noted in the right gluteus nasim: pain, tenderness, noted in the right leg and left leg: swelling. Vital Signs: 17:52 BP 146 / 107; Pulse 99; Resp 19 S; Temp 97.9(TE); Pulse Ox 97% on R/A; Weight 144.7 kg aa5 (R); Height 5 ft. 5 in. (R); 19:23 BP 122 / 72; Pulse 74; Resp 18; Pulse Ox 100% on R/A; Pain 0/10; mb9 17:52 Body Mass Index 53.08 (144.70 kg, 165.1 cm) aa5 19:23 Pain Scale: Adult mb9 MDM: 17:47 Patient medically screened. kb 21:04 Data reviewed: vital signs, nurses notes. kb 21:04 Differential diagnosis: arthritis, strain, sciatica, Herniated disc dvt. Counseling: I kb had a detailed discussion with the patient and/or guardian regarding the historical points, exam findings, and any diagnostic results supporting the discharge/admit diagnosis, radiology results, the need for outpatient follow up, a family practitioner, to return to the emergency department if symptoms worsen or persist or if there are any questions or concerns that arise at home. 09/27 18:07 Order name: Glucose, Ancillary Testing; Complete Time: 18:09 EDIA 09/27 17:56 Order name: US Extremity Venous Unilateral Ltd; Complete Time: 19:06 kb Administered Medications: 18:23 Drug: Dexamethasone IM 10 mg Route: IM; Site: left gluteus; mb9 19:13 Follow up: Response: No adverse reaction mb9 18:24 Drug: [place] PO 10 mg-325 mg 1 tabs Route: PO; mb9 19:13 Follow up: Response: No adverse reaction mb9 18:24 Drug: Ketorolac IM 30 mg Route: IM; Site: right gluteus; mb9 19:13 Follow up: Response: No adverse reaction mb9 Point of Care Testing: Blood Glucose: 17:55 Blood Glucose: 129 mg/dL; aa5 Ranges: Critical Glucose Levels:Adult <50 mg/dl or >400 mg/dl <40 mg/dl or >180 mg/dl Disposition: 21:04 Co-signature as Attending Physician, Ceicl Lui DO I was immediately available on-site ms3 in the Emergency Department for consultation in the care of the patient. Disposition Summary: 09/27/22 19:07 Discharge Ordered Location: [place] kb Condition: Stable kb Diagnosis - Sciatica, right side kb Followup: kb - With: Emergency Department - When: As needed - Reason: Worsening of condition Followup: kb - With: Private Physician - When: 2 - 3 days - Reason: Recheck today's complaints, Continuance of care, Re-evaluation by your physician Discharge Instructions: - Discharge Summary Sheet kb - Sciatica, Ubhf-[id number]-Mamb kb - Back Exercises, Peti-nf-Clum kb Forms: - Medication Reconciliation Form kb - Thank You Letter kb - Antibiotic Education kb - Prescription Opioid Use kb - Patient Portal Instructions kb - Leadership Thank You Letter kb Prescriptions: - Cyclobenzaprine 10 mg Oral Tablet - take 1 tablet by ORAL route every 8 hours As needed; 21 tablet; Refills: 0, kb Product Selection Permitted - Diclofenac Sodium 75 mg Oral tablet,delayed release (DR/EC) - take 1 tablet by ORAL route 2 times per day As needed; 30 tablet; Refills: 0, kb Product Selection Permitted Signatures: Dispatcher [employer] Angelic Jacobo FNP-C FNP-Ckb Calderon, Audri RN RN aa5 Cecil Lui DO DO ms3 Rupa Groves RN RN mb9 Corrections: (The following items were deleted from the chart) 21:05 21:03 Musculoskeletal/extremity: Extremities: grossly normal except: noted in the right kb gluteus nasim: pain, tenderness, kb
--- NOTE | 2022-09-27 19:08 | ER ---
Nurse's Notes [facility] Name: Kerri Jacobson Age: 47 yrs Sex: Female : 1975 Arrival Date: 09/27/2022 Time: 17:41 Bed 13 Private MD: Diagnosis: Sciatica, right side Presentation: 09/27 17:52 Chief complaint: Patient states: Right hip pain radiating down right leg x >1 month aa5 ago. Coronavirus screen: At this time, the client does not indicate any symptoms associated with coronavirus-19. Ebola Screen: Patient denies travel to an Ebola-affected area in the 21 days before illness onset. Risk Assessment: Do you want to hurt yourself or someone else? Patient reports no desire to harm self or others. Onset of symptoms was 2022. 17:52 Acuity: RM 3 aa5 17:52 Method Of Arrival: Ambulatory aa5 17:52 Initial Sepsis Screen: Does the patient meet any 2 criteria? HR > 90 bpm. Does the aa5 patient have a suspected source of infection? No. Patient's initial sepsis screen is negative. 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 - Social history:: Smoking status: Patient reports the use of cigarette tobacco products, smokes one-half pack cigarettes per day. Screenin:25 [facility] ED Fall Risk Assessment (Adult) History of falling in the last 3 months, mb9 including since admission No falls in past 3 months (0 pts) Confusion or Disorientation No (0 pts) Intoxicated or Sedated No (0 pts) Impaired Gait No (0 pts) Mobility Assist Device Used No (0 pt) Altered Elimination No (0 pt) Score/Fall Risk Level 0 - 2 = Low Risk Oriented to surroundings, Maintained a safe environment, Educated pt \T\ family on fall prevention, incl call for assistance when getting out of bed. Abuse screen: Denies threats or abuse. Nutritional screening: No deficits noted. Tuberculosis screening: No symptoms or risk factors identified. Assessment: 18:25 General: Appears uncomfortable, Behavior is calm, cooperative. Pain: Complains of pain mb9 in right hip Pain currently is 10 out of 10 on a pain scale. Quality of pain is described as aching, throbbing, Pain began months ago Is continuous, Aggravated by repositioning, weight bearing. Neuro: Montero Agitation-Sedation Scale (RASS): 0 - Alert and Calm Level of Consciousness is awake, alert, obeys commands, Oriented to person, place, time, situation, Appropriate for age. Respiratory: Airway is patent Respiratory effort is even, unlabored, Respiratory pattern is regular, symmetrical. GI: No signs and/or symptoms were reported involving the gastrointestinal system. Derm: Skin is pink, warm \T\ dry. Musculoskeletal: Range of motion: intact in all extremities. 19:23 Reassessment: Patient and/or family updated on plan of care and expected duration. Pain mb9 level reassessed. Patient is alert, oriented x 3, equal unlabored respirations, skin warm/dry/pink. Patient states feeling better. Patient states symptoms have improved. Vital Signs: 17:52 BP 146 / 107; Pulse 99; Resp 19 S; Temp 97.9(TE); Pulse Ox 97% on R/A; Weight 144.7 kg aa5 (R); Height 5 ft. 5 in. (R); 19:23 BP 122 / 72; Pulse 74; Resp 18; Pulse Ox 100% on R/A; Pain 0/10; mb9 17:52 Body Mass Index 53.08 (144.70 kg, 165.1 cm) aa5 19:23 Pain Scale: Adult mb9 ED Course: 17:45 Patient arrived in ED. kj1 17:47 Angelic Morrow FNP-C [facility]. kb 17:47 Cecil Lui DO is Attending Physician. kb 17:52 Arm band placed on. aa5 17:53 Triage completed. aa5 18:15 Rupa Groves, BETTE is Primary Nurse. mb9 18:25 Bed in low position. Call light in reach. Side rails up X 1. Client placed on mb9 continuous cardiac and pulse oximetry monitoring. NIBP monitoring applied. 18:26 No provider procedures requiring assistance completed. Patient did not have IV access mb9 during this emergency room visit. 18:42 US Extremity Venous Unilateral Ltd In Process Unspecified. EDMS Administered Medications: 18:23 Drug: Dexamethasone IM 10 mg Route: IM; Site: left gluteus; mb9 19:13 Follow up: Response: No adverse reaction mb9 18:24 Drug: [place] PO 10 mg-325 mg 1 tabs Route: PO; mb9 19:13 Follow up: Response: No adverse reaction mb9 18:24 Drug: Ketorolac IM 30 mg Route: IM; Site: right gluteus; mb9 19:13 Follow up: Response: No adverse reaction mb9 Medication: 18:26 VIS not applicable for this client. mb9 Point of Care Testing: Blood Glucose: 17:55 Blood Glucose: 129 mg/dL; aa5 Ranges: Outcome: 19:07 Discharge ordered by MD. mendoza 19:23 Discharged to home ambulatory. mb9 19:23 Condition: stable 19:23 Discharge instructions given to patient, Instructed on discharge instructions, follow up and referral plans. Demonstrated understanding of instructions, follow-up care, medications, Prescriptions given X 2. 19:24 Patient left the ED. mb9 Signatures: Dispatcher [employer] EDMS Angelic Morrow, SNEHAL-C DIRECTOR OF MARKET INTELLIGENCE-Tabby Ansari, RN RN aa5 Clarita Morrow kj1 Rupa Groves RN RN mb9 Corrections: (The following items were deleted from the chart) 17:57 17:52 Initial Sepsis Screen: Does the patient meet any 2 criteria? No. Patient's aa5 initial sepsis screen is negative. Does the patient have a suspected source of infection? No. Patient's initial sepsis screen is negative. aa5
[2022-09-27 19:49] VITALS: TEMP 97.9
[2022-09-27 19:50] VITALS: BP 122/72; O2SAT 100
== END 2022-09-27 19:24 | disposition home or self-care (01) ==
LOC: ER 17:41
DX: M54.31 Sciatica, right side (principal)
CPT/HCPCS: 82947; 93971; 96372; 99284; J1100